=== PATIENT | female | born 1950 | race Two or more races ===

== ENCOUNTER 2019-10-31 10:43 | Inpatient (IN) | payer MEDICARE, BC, MEDICAID ==
[~2019-10-31] VITALS: Ht 160 cm; Wt 74.8 kg
[2019-10-31 10:50] VITALS: BP 136/70
--- NOTE | 2019-10-31 10:50 | NUR ---
ED Nurse Note: Pt brought by ambulance into ED w/ c/o L knee pain s/p fall out of bed 1 hour ago. L knee pain 7/10. Pt pedal pulses 3+, pt denies numbness/tingling. ROM 2/5 LLE. Pt is alert and ox4, ambulatory before fall. Pt set up on monitor due to hx of heart stent. XR being taken.
[2019-10-31] MEDS ORDERED: ZYRTEC10 MG ORAL (10:54)
[2019-10-31] MEDS ORDERED: SYNTHROID25 MCG ORAL (10:54)
[2019-10-31] MEDS ORDERED: Morphine Sulfate 4mg/ml Inj (IV USE ONLY) IM ONE (11:15)
--- NOTE | 2019-10-31 11:24 | Diagnostic Imaging Report ---
EXAM: XR Left Knee, 3 views CLINICAL HISTORY: PAIN TECHNIQUE: Three views of the left knee. COMPARISON: No relevant prior studies available. FINDINGS: Bones/joints: Comminuted mildly impacted distal femoral metaphyseal fracture. Moderate tricompartmental degenerative osteoarthrosis. Small knee joint effusion. Soft tissues: Soft tissue swelling overlying the knee. Vasculature: Vascular calcifications seen posteriorly. IMPRESSION: 1. Comminuted mildly impacted distal femoral metaphyseal fracture. 2. Moderate tricompartmental degenerative osteoarthrosis. 3. Soft tissue swelling overlying the knee. 4. Small knee joint effusion.
--- NOTE | 2019-10-31 11:28 | Emergency Room Report ---
History of Present Illness General Chief Complaint: Multiple Trauma/Fall Source: Patient Present Illness HPI 69-year-old female who reports falling out of bed this morning landing on her left knee. Patient reports severe pain with any movement to her left knee. Patient stated she woke up in good health this morning she stood up out of bed tripped, and fell onto her left knee. Patient denies any head injury, nausea, vomiting, dizziness. Patient is not on anti-anticoagulation. Allergies: Coded Allergies: No Known Allergies (Unverified , 10/31/19) Nursing Documentation-[facility] Past Medical History: No History, Except For Hx Cardiac Problems: No - kidney cancer, stent surgery in May 2019 Review of Systems Constitutional: Denies: chills, fever Respiratory: Denies: cough, shortness of breath Cardiovascular: Denies: chest pain, palpitations Gastrointestinal: Denies: diarrhea, vomiting Genitourinary: Denies: hematuria, pain Musculoskeletal: Reports: joint pain, joint swelling Skin: Denies: rash, lesions Neurological: Denies: headache, dizziness Physical Exam Vital Signs Date Time Temp Pulse Resp B/P (MAP) Pulse Ox O2 Delivery O2 Flow Rate FiO2 10/31/19 10:45 97.9 63 18 146/65 (92) 95 Room Air Sp02 EP Interpretation: reviewed General Appearance: well appearing, non-toxic, moderate distress - Can Sean to pain Head: normocephalic, atraumatic Eyes: bilateral eye normal inspection ENT: hearing grossly normal, EOM grossly intact, moist mucus membranes Neck: supple Respiratory: lungs clear, normal breath sounds, no respiratory distress, speaking full sentences Cardiovascular #1: regular rate, rhythm, normal capillary refill Cardiovascular #2: 2+ radial (R), 2+ radial (L) Gastrointestinal: soft, non-distended Rectal: deferred Musculoskeletal: no lower extremity edema, tender - Superior to left knee, swelling - Medial and lateral distal left femur, other - Range of motion limited due to severe pain in left knee. Obvious deformity noted anteriorly at distal femur Neurologic: alert, grossly normal Psychiatric: mood/affect normal Skin: warm/dry, normal turgor Medical Decision Making Diagnostic Impression: Primary Impression: Fracture, femur Additional Impression: Fall ER Course 69-year-old female status post fall presenting with knee pain. Patient found to have obvious deformity of superior aspect of knee, inferior aspect of femur. Differential includes was not limited to fracture, dislocation, hematoma, vascular injury We will perform x-rays and preop lab testing as patient has likely fracture. Laboratory Tests Test 10/31/19 11:12 White Blood Count 11.1 K/UL (4.8-10.8) H Red Blood Count 3.58 M/UL (4.20-5.40) L Hemoglobin 9.4 G/DL (12.0-16.0) L Hematocrit 30.4 % (37.0-47.0) L Mean Corpuscular Volume 85 FL (80-99) Mean Corpuscular Hemoglobin 26.3 PG (27.0-31.0) L Mean Corpuscular Hemoglobin Concent 30.9 G/DL (32.0-36.0) L Red Cell Distribution Width 15.7 % (11.6-14.8) H Platelet Count 217 K/UL (150-450) Mean Platelet Volume 8.3 FL (6.5-10.1) Neutrophils (%) (Auto) % (45.0-75.0) Lymphocytes (%) (Auto) % (20.0-45.0) Monocytes (%) (Auto) % (1.0-10.0) Eosinophils (%) (Auto) % (0.0-3.0) Basophils (%) (Auto) % (0.0-2.0) Differential Total Cells Counted 100 Neutrophils % (Manual) 92 % (45-75) H Lymphocytes % (Manual) 4 % (20-45) L Monocytes % (Manual) 4 % (1-10) Eosinophils % (Manual) 0 % (0-3) Basophils % (Manual) 0 % (0-2) Band Neutrophils 0 % (0-8) Platelet Estimate Adequate Platelet Morphology Normal Hypochromasia 1+ Anisocytosis 1+ Prothrombin Time 10.1 SEC (9.30-11.50) Prothrombin Time INR 0.9 (0.9-1.1) PTT 25 SEC (23-33) Sodium Level 142 MMOL/L (136-145) Potassium Level 4.6 MMOL/L (3.5-5.1) Chloride Level 111 MMOL/L (98-107) H Carbon Dioxide Level 20 MMOL/L (21-32) L Anion Gap 11 mmol/L (5-15) Blood Urea Nitrogen 35 mg/dL (7-18) H Creatinine 0.8 MG/DL (0.55-1.30) Estimate Glomerular Filtration Rate > 60 mL/min (>60) Glucose Level 137 MG/DL (74-106) H Calcium Level 8.5 MG/DL (8.5-10.1) Total Bilirubin 0.2 MG/DL (0.2-1.0) Aspartate Amino Transferase (AST) 20 U/L (15-37) Alanine Aminotransferase (ALT) 30 U/L (12-78) Alkaline Phosphatase 120 U/L (46-116) H Total Protein 7.4 G/DL (6.4-8.2) Albumin 3.4 G/DL (3.4-5.0) Globulin 4.0 g/dL Albumin/Globulin Ratio 0.9 (1.0-2.7) L EKG Diagnostic Results EKG Time: 11:18 EP Interpretation: Normal sinus rhythm rate of 69 Rate: normal Rhythm: NSR ST Segments: no acute changes Other X-Ray Diagnostic Results Other X-Ray Diagnostic Results : X-Ray ordered: xr knee Indication: Pain EP Interpretation: Yes Interpretation: other - Fracture of distal femur PA Scribe Text IMPRESSION: 1. Comminuted mildly impacted distal femoral metaphyseal fracture. 2. Moderate tricompartmental degenerative osteoarthrosis. 3. Soft tissue swelling overlying the knee. 4. Small knee joint effusion. Last Vital Signs Date Time Temp Pulse Resp B/P (MAP) Pulse Ox O2 Delivery O2 Flow Rate FiO2 10/31/19 10:45 97.9 63 18 146/65 (92) 95 Room Air Reevaluation Impression Patient found to have distal femur fracture. Patient's case discussed with Dr. Givens and Dr Herrera (orthopedics) who accepted pts admission to floor Disposition: ADMITTED INPATIENT Condition: Serious Referrals: NOT CHOSEN IPA/,REFERRING (PCP) Richard Saldana M.D. Oct 31, 2019 11:28
[2019-10-31 11:31] LABS: HEMATOCRIT 30.4 % (37.0-47.0); HEMOGLOBIN 9.4 G/DL (12.0-16.0); MEAN CORPUSCULAR VOLUME 85 FL (80-99); PLATELET COUNT 217 K/UL (150-450); RED BLOOD COUNT 3.58 M/UL (4.20-5.40); RED CELL DISTRIBUTION WIDTH 15.7 % (11.6-14.8); WHITE BLOOD COUNT 11.1 K/UL (4.8-10.8)
[2019-10-31 11:43] LABS: ANION GAP 11 mmol/L (5-15); BLOOD UREA NITROGEN 35 mg/dL (7-18); CALCIUM 8.5 MG/DL (8.5-10.1); CARBON DIOXIDE 20 MMOL/L (21-32); CHLORIDE 111 MMOL/L (98-107); CREATININE 0.8 MG/DL (0.55-1.30); POTASSIUM 4.6 MMOL/L (3.5-5.1); SODIUM 142 MMOL/L (136-145)
[2019-10-31 11:50] LABS: INR 0.9 (0.9-1.1)
[2019-10-31 11:52] LABS: ALANINE AMINOTRANSFERASE 30 U/L (12-78); ALBUMIN 3.4 G/DL (3.4-5.0); ALBUMIN/GLOBULIN RATIO 0.9 (1.0-2.7); ALKALINE PHOSPHATASE 120 U/L (46-116); ASPARTATE AMINO TRANSFERASE 20 U/L (15-37); BILIRUBIN,TOTAL 0.2 MG/DL (0.2-1.0)
[2019-10-31] MEDS ORDERED: HYDROmorphone 1mg/ml Carpuject IVP ONE ×2 (12:00→16:15)
--- NOTE | 2019-10-31 12:58 | Diagnostic Imaging Report ---
EXAM: XR Left Hip With Pelvis When Performed, 2 or 3 Views CLINICAL HISTORY: PAIN TECHNIQUE: Two or three views of the left hip, with pelvis when performed. COMPARISON: Left knee x-rays obtained earlier the same date FINDINGS: Bones/joints: Mild osseous hypertrophy and/or enthesophytes along the left femoral greater trochanter, likely chronic. Partial visualization of a comminuted distal femoral diaphyseal fracture. No visible fracture or dislocation in the left hip. Soft tissues: Unremarkable. IMPRESSION: 1. No acute findings in the left hip. 2. Partial visualization of a comminuted distal femoral diaphyseal fracture.
[2019-10-31 13:00] VITALS: BP 133/70
[2019-10-31 14:58] VITALS: BP 130/71
[2019-10-31 17:00] VITALS: BP 124/78
[2019-10-31] MEDS ORDERED: Hydromorphone 0.5mg/0.5ml inj IVP ONE (18:30)
[2019-10-31] MEDS ORDERED: Ketorolac 30mg Inj IV ONE (18:30)
[2019-10-31 19:07] VITALS: BP 137/78
--- NOTE | 2019-10-31 20:05 | NUR ---
TRANSFER TO FLOOR: Patient transferred to as ordered, per Dr Givens. Report given to GUICHO Castellon . Belongings and medications given to . Family and or S/O informed of transfer.
[2019-10-31 20:10] VITALS: BP 121/64
--- NOTE | 2019-10-31 20:10 | NUR ---
NURSE NOTES: Received pt from E.D> via [facility], pain level 7/10 to left femur, no distress noted. IV Rj LATHAM # 20 Addendum: 10/31/19 at 2348 by LAUREN MEDINA RN Received pt from E.D. via [facility], pain level 7/10 to left femur, no distress noted. IV R AC #18 patent and intact. Will admit pt to floor. Bed in lowest position and locked, side rails up x 2, call lig within reach. Will condinue to monitor.
--- NOTE | 2019-10-31 21:00 | NUR ---
NURSE NOTES: Pt takes Brilinta medication. Our pharmacy does not carry this medication. Instructed pt to have someone bring medication from [facility]. Pt verbalized understanding of instruction.
[2019-10-31] MEDS ORDERED: Hydromorphone 0.5mg/0.5ml inj IVP PRN (21:30)
[2019-10-31] MEDS ORDERED: Zolpidem 5mg tab ORAL PRN (21:30)
[2019-10-31] MEDS ORDERED: Heparin 1000 units/ml 1ml Vial INJ ONE (21:30)
[2019-10-31] MEDS ORDERED: HYDROcodone/Acetamin 5/325 tab ORAL PRN (21:30)
[2019-10-31] MEDS ORDERED: Heparin 5000 units/ml inj SUBQ SCH (21:36)
[2019-10-31] MEDS: Hydromorphone 0.5mg/0.5ml inj IVP PRN (22:25)
--- NOTE | 2019-10-31 23:02 | History & Physical ---
History and Physical History & Physicial History and Physical HPI Patient is a 69-year-old female with past medical history of Coronary Artery Disease, s/p Stent May 2019, Renal Cell Carcinoma s/p Chemotherapy, who reports falling out of bed this morning, subsequently noting severe pain with any movement to her left knee. Patient stated she woke up in good health this morning she stood up out of bed tripped, and fell onto her left knee. Patient denies any head injury, nausea, vomiting, dizziness. Patient is on Brilinta. Allergies: No Known Allergies Past Medical History: Coronary Artery Disease, s/p Stent May 2019, Renal Cell Carcinoma s/p Chemotherapy ROS: Negative aside from above Physical Exam Vital Signs Noted Date Time Temp Pulse Resp B/P (MAP) Pulse Ox O2 Delivery O2 Flow Rate FiO2 10/31/19 10:45 97.9 63 18 146/65 (92) 95 Room Air General Appearance: well appearing, non-toxic, comfortable Head: normocephalic, atraumatic Eyes: bilateral eye normal inspection ENT: hearing grossly normal, EOM grossly intact, moist mucus membranes Neck: supple Respiratory: lungs clear, normal breath sounds, no respiratory distress, speaking full sentences Cardiovascular: regular rate, rhythm, HS1, HS2, normal Gastrointestinal: soft, non-distended Rectal: deferred Musculoskeletal: well perfused, no lower extremity edema, tender - Superior to left knee, swelling - Medial and lateral distal left femur, other - Range of motion limited due to severe pain in left knee. Obvious deformity noted anteriorly at distal femur Neurologic: alert, grossly normal Skin: warm/dry, normal turgor Impression: Fracture, femur Fall Coronary Artery Disease, s/p Stent May 2019 Renal Cell Carcinoma s/p Chemotherapy Plan: Orthopedic Consultation Cardiology Consultation - will need preoperative clearance - Dr Snyder SAUSAGE STRINGER Medications PPX Monitor labs Pain medications Laboratory Tests Test 10/31/19 11:12 White Blood Count 11.1 K/UL (4.8-10.8) H Red Blood Count 3.58 M/UL (4.20-5.40) L Hemoglobin 9.4 G/DL (12.0-16.0) L Hematocrit 30.4 % (37.0-47.0) L Mean Corpuscular Volume 85 FL (80-99) Mean Corpuscular Hemoglobin 26.3 PG (27.0-31.0) L Mean Corpuscular Hemoglobin Concent 30.9 G/DL (32.0-36.0) L Red Cell Distribution Width 15.7 % (11.6-14.8) H Platelet Count 217 K/UL (150-450) Mean Platelet Volume 8.3 FL (6.5-10.1) Neutrophils (%) (Auto) % (45.0-75.0) Lymphocytes (%) (Auto) % (20.0-45.0) Monocytes (%) (Auto) % (1.0-10.0) Eosinophils (%) (Auto) % (0.0-3.0) Basophils (%) (Auto) % (0.0-2.0) Differential Total Cells Counted 100 Neutrophils % (Manual) 92 % (45-75) H Lymphocytes % (Manual) 4 % (20-45) L Monocytes % (Manual) 4 % (1-10) Eosinophils % (Manual) 0 % (0-3) Basophils % (Manual) 0 % (0-2) Band Neutrophils 0 % (0-8) Platelet Estimate Adequate Platelet Morphology Normal Hypochromasia 1+ Anisocytosis 1+ Prothrombin Time 10.1 SEC (9.30-11.50) Prothrombin Time INR 0.9 (0.9-1.1) PTT 25 SEC (23-33) Sodium Level 142 MMOL/L (136-145) Potassium Level 4.6 MMOL/L (3.5-5.1) Chloride Level 111 MMOL/L (98-107) H Carbon Dioxide Level 20 MMOL/L (21-32) L Anion Gap 11 mmol/L (5-15) Blood Urea Nitrogen 35 mg/dL (7-18) H Creatinine 0.8 MG/DL (0.55-1.30) Estimate Glomerular Filtration Rate > 60 mL/min (>60) Glucose Level 137 MG/DL (74-106) H Calcium Level 8.5 MG/DL (8.5-10.1) Total Bilirubin 0.2 MG/DL (0.2-1.0) Aspartate Amino Transferase (AST) 20 U/L (15-37) Alanine Aminotransferase (ALT) 30 U/L (12-78) Alkaline Phosphatase 120 U/L (46-116) H Total Protein 7.4 G/DL (6.4-8.2) Albumin 3.4 G/DL (3.4-5.0) Globulin 4.0 g/dL Albumin/Globulin Ratio 0.9 (1.0-2.7) L EKG Normal sinus rhythm rate of 69 Rate: normal ST Segments: no acute changes XRay Knee: IMPRESSION: 1. Comminuted mildly impacted distal femoral metaphyseal fracture. 2. Moderate tricompartmental degenerative osteoarthrosis. 3. Soft tissue swelling overlying the knee. 4. Small knee joint effusion. Mariano Taylor MD Oct 31, 2019 23:02
[2019-11-01] VITALS: BP 113/55
--- NOTE | 2019-11-01 00:20 | NUR ---
NURSE NOTES: Pt states she hasn't voided since this morning. Bladder scan done 631ml noted. Encouraged pt to void in the bedpan. Will continue ot monitor.
--- NOTE | 2019-11-01 00:50 | NUR ---
NURSE NOTES: Pt voided via bedpan 500ml of yellow color urine.
[2019-11-01] MEDS: Hydromorphone 0.5mg/0.5ml inj IVP PRN ×2 (01:33→05:16)
[2019-11-01 05:20] VITALS: BP 108/58
[2019-11-01] MEDS: Levothyroxine 25mcg tab ORAL SCH (05:54)
[2019-11-01 06:51] LABS: BASOPHILS % (AUTO) 0.5 % (0.0-2.0); HEMATOCRIT 26.8 % (37.0-47.0); HEMOGLOBIN 8.3 G/DL (12.0-16.0); LYMPHOCYTES % (AUTO) 20.7 % (20.0-45.0); MEAN CORPUSCULAR VOLUME 85 FL (80-99); MONOCYTES % (AUTO) 11.2 % (1.0-10.0); NEUTROPHILS % (AUTO) 66.7 % (45.0-75.0); PLATELET COUNT 174 K/UL (150-450); RED BLOOD COUNT 3.17 M/UL (4.20-5.40); RED CELL DISTRIBUTION WIDTH 15.6 % (11.6-14.8); WHITE BLOOD COUNT 7.7 K/UL (4.8-10.8)
[2019-11-01 07:04] LABS: ANION GAP 11 mmol/L (5-15); BLOOD UREA NITROGEN 39 mg/dL (7-18); CALCIUM 8.3 MG/DL (8.5-10.1); CARBON DIOXIDE 20 MMOL/L (21-32); CHLORIDE 111 MMOL/L (98-107); CREATININE 0.9 MG/DL (0.55-1.30); POTASSIUM 4.7 MMOL/L (3.5-5.1); SODIUM 141 MMOL/L (136-145)
--- NOTE | 2019-11-01 07:06 | NUR ---
NURSE NOTES: Called pharmacy and spoke with Tammie (pharmacist) if pharmacy carry Brilinta medication. Per Tammie, pharmacy doesn't carry this medication. Ask pt to have medication brought from home.
--- NOTE | 2019-11-01 07:30 | NUR ---
HAND-OFF: Report given to GUICHO Cisneros. Pt in stable condition.
--- NOTE | 2019-11-01 07:30 | NUR ---
NURSE NOTES: Notified Dr. Mcleod for wound care consult per Dr. Taylor's order.
--- NOTE | 2019-11-01 07:33 | NUR ---
NURSE NOTES: Received report from GUICHO Batista. Rounding done with outgoing nurse. Pt a/o x 4, in bed. Denies any pain at this time. Rt AC IV access is patent. NS is running @50ml/hr at this time. Rt heel pressure ulcer noted. Bed in lowest position, call light within reach. Will continue to monitor.
[2019-11-01 08:00] VITALS: BP 112/56
[2019-11-01] MEDS: HYDROcodone/Acetamin 5/325 tab ORAL PRN ×2 (08:27→20:39)
--- NOTE | 2019-11-01 08:30 | General Progress Note ---
Assessment/Plan Assessment/Plan: Impression: Fracture, femur Fall Coronary Artery Disease, s/p Stent May 2019 Renal Cell Carcinoma s/p Chemotherapy Plan: Orthopedic Consultation Cardiology Consultation - clearance for surgery Monitor labs Pain medications DVT prophylaxis impression, plan, and exam edited and reviewed in detail care discussed with RN Subjective Allergies: Coded Allergies: No Known Allergies (Unverified , 10/31/19) Subjective care reviewed has pain ortho contacted Objective Last 24 Hour Vital Signs Date Time Temp Pulse Resp B/P (MAP) Pulse Ox O2 Delivery O2 Flow Rate FiO2 11/01/19 05:20 97.8 80 18 108/58 (75) 97 11/01/19 00:00 98.4 69 18 113/55 (74) 98 10/31/19 20:34 Room Air 10/31/19 20:10 97.3 77 18 121/64 (83) 96 10/31/19 20:05 98.4 89 17 137/78 95 Room Air 99 10/31/19 19:07 89 17 137/78 95 Room Air 10/31/19 17:00 85 21 124/78 98 Room Air 10/31/19 14:58 98.4 72 20 130/71 100 Room Air 99 10/31/19 13:00 98.8 70 19 133/70 98 Room Air 10/31/19 10:50 70 19 Room Air 99 10/31/19 10:50 98.4 82 18 136/70 99 Room Air 10/31/19 10:45 97.9 63 18 146/65 (92) 95 Room Air Intake and Output 10/31/19 11/01/19 19:00 07:00 Intake Total 750 ml Output Total 600 ml Balance 150 ml Intake Oral 300 ml IV Total 450 ml Output Urine Total 600 ml Laboratory Tests 10/31/19 11:12: White Blood Count 11.1H, Red Blood Count 3.58L, Hemoglobin 9.4L, Hematocrit 30.4L, Mean Corpuscular Volume 85, Mean Corpuscular Hemoglobin 26.3L, Mean Corpuscular Hemoglobin Concent 30.9L, Red Cell Distribution Width 15.7H, Platelet Count 217, Mean Platelet Volume 8.3, Neutrophils (%) (Auto) , Lymphocytes (%) (Auto) , Monocytes (%) (Auto) , Eosinophils (%) (Auto) , Basophils (%) (Auto) , Differential Total Cells Counted 100, Neutrophils % ( Manual) 92H, Lymphocytes % (Manual) 4L, Monocytes % (Manual) 4, Eosinophils % ( Manual) 0, Basophils % (Manual) 0, Band Neutrophils 0, Platelet Estimate Adequate, Platelet Morphology Normal, Hypochromasia 1+, Anisocytosis 1+, Prothrombin Time 10.1, Prothromb Time International Ratio 0.9, Activated Partial Thromboplast Time 25, Sodium Level 142, Potassium Level 4.6, Chloride Level 111H, Carbon Dioxide Level 20L, Anion Gap 11, Blood Urea Nitrogen 35H, Creatinine 0.8, Estimat Glomerular Filtration Rate > 60, Glucose Level 137H, Calcium Level 8.5, Total Bilirubin 0.2, Aspartate Amino Transf (AST/SGOT) 20, Alanine Aminotransferase (ALT/SGPT) 30, Alkaline Phosphatase 120H, Total Protein 7.4, Albumin 3.4, Globulin 4.0, Albumin/Globulin Ratio 0.9L 11/01/19 05:35: White Blood Count 7.7, Red Blood Count 3.17L, Hemoglobin 8.3L, Hematocrit 26.8L , Mean Corpuscular Volume 85, Mean Corpuscular Hemoglobin 26.3L, Mean Corpuscular Hemoglobin Concent 31.0L, Red Cell Distribution Width 15.6H, Platelet Count 174, Mean Platelet Volume 8.5, Neutrophils (%) (Auto) 66.7, Lymphocytes (%) (Auto) 20.7, Monocytes (%) (Auto) 11.2H, Eosinophils (%) (Auto) 1.0, Basophils (%) (Auto) 0.5, Sodium Level 141, Potassium Level 4.7, Chloride Level 111H, Carbon Dioxide Level 20L, Anion Gap 11, Blood Urea Nitrogen 39H, Creatinine 0.9, Estimat Glomerular Filtration Rate > 60, Glucose Level 79, Calcium Level 8.3L, Pro-B-Type Natriuretic Peptide 326H, Thyroid Stimulating Hormone (TSH) 0.096L Height (Feet): 5 Height (Inches): 3.00 Weight (Pounds): 166 Objective WDWN NAD clear breath sounds bilaterally without rhonchi or wheeze [id number] without MRG NABS nontender no HSM no CCE nonfocal Superior to left knee, swelling - Medial and lateral distal left femur, Range of motion limited due to severe pain in left knee. Obvious deformity noted anteriorly at distal femur Mingo Givens MD Nov 01, 2019 08:30
--- NOTE | 2019-11-01 08:31 | Consultation ---
Consult Note Consult Note 69 yo female with mechanical fall from bed yesterday morning and significant left knee pain Left comminuted distal femur fx Rec ORIF tomorrow with plates/screws vs IM nailing. d/w pt risks/benefits. needs medical clearance full note dictated Rubi Del Cid Nov 01, 2019 08:31
[2019-11-01] MEDS ORDERED: HYDROmorphone 1mg/ml Carpuject IVP PRN (08:45)
[2019-11-01] MEDS: HYDROmorphone 1mg/ml Carpuject IVP PRN ×4 (11:12→23:16)
--- NOTE | 2019-11-01 11:56 | NUR ---
NURSE NOTES: Pt's family brought Brilinta 90mg BID from home. Asked Dr. Givens regarding this home meds. ordered star after surgery. Will put it in.
[2019-11-01 12:00] VITALS: BP 114/53
--- NOTE | 2019-11-01 12:36 | NUR ---
NURSE NOTES: Hgb 8.3 and informed Rubi TELLEZ. No new order.
--- NOTE | 2019-11-01 12:37 | NUR ---
NURSE NOTES: Hgb 8.[address] Givens. is aware and no new order.
--- NOTE | 2019-11-01 13:02 | Diagnostic Imaging Report ---
Indications: Reason For Exam: PAIN Technique: Two views of the left femur Comparison: None Findings: Only limited AP images obtained, due to patient inability to tolerate positioning. There is a comminuted fracture of the distal femur. This is slightly angulated and slightly impacted. Impression: Positive for comminuted distal femoral fracture
--- NOTE | 2019-11-01 14:21 | Anethesia Preoperative Eval ---
Anesthesia Pre-op PMH/ROS General Date of Evaluation: Nov 01, 2019 Time of Evaluation: 12:58 Anesthesiologist: Arin ASA Score: ASA 3 Mallampati Score Class I : Soft palate, uvula, fauces, pillars visible Class II: Soft palate, uvula, fauces visible Class III: Soft palate, base of uvula visible Class IV: Only hard plate visible Mallampati Classification: Class II Surgeon: Letitia Diagnosis: L Femur Fx Surgical Procedure: ORIF L Femur Anesthesia History: none Family History: no anesthesia problems Allergies: Coded Allergies: No Known Allergies (Unverified , 10/31/19) Medications: see eMAR Patient NPO?: Yes Past Medical History Cardiovascular: Reports: CAD - Stent Hematology/Immune: Reports: other - Renal Cancer Anesthesia Pre-op Phys. Exam Physician Exam Last Vital Signs Date Time Temp Pulse Resp B/P (MAP) Pulse Ox O2 Delivery O2 Flow Rate FiO2 11/01/19 12:00 97.8 79 18 114/53 (73) 94 11/01/19 09:00 Room Air 10/31/19 20:05 99 Constitutional: NAD Neurologic: CN 2-12 intact Cardiovascular: RRR Respiratory: CTA Gastrointestinal: S/NT/ND Airway Exam Mallampati Score: Class II MO: limited ROM: limited Teeth: missing, intact Anesthesia Pre-op A/P Labs Hematology Test 11/01/19 05:35 White Blood Count 7.7 K/UL (4.8-10.8) Red Blood Count 3.17 M/UL (4.20-5.40) L Hemoglobin 8.3 G/DL (12.0-16.0) L Hematocrit 26.8 % (37.0-47.0) L Mean Corpuscular Volume 85 FL (80-99) Mean Corpuscular Hemoglobin 26.3 PG (27.0-31.0) L Mean Corpuscular Hemoglobin Concent 31.0 G/DL (32.0-36.0) L Red Cell Distribution Width 15.6 % (11.6-14.8) H Platelet Count 174 K/UL (150-450) Mean Platelet Volume 8.5 FL (6.5-10.1) Neutrophils (%) (Auto) 66.7 % (45.0-75.0) Lymphocytes (%) (Auto) 20.7 % (20.0-45.0) Monocytes (%) (Auto) 11.2 % (1.0-10.0) H Eosinophils (%) (Auto) 1.0 % (0.0-3.0) Basophils (%) (Auto) 0.5 % (0.0-2.0) Chemistry Test 11/01/19 05:35 Sodium Level 141 MMOL/L (136-145) Potassium Level 4.7 MMOL/L (3.5-5.1) Chloride Level 111 MMOL/L (98-107) H Carbon Dioxide Level 20 MMOL/L (21-32) L Anion Gap 11 mmol/L (5-15) Blood Urea Nitrogen 39 mg/dL (7-18) H Creatinine 0.9 MG/DL (0.55-1.30) Estimat Glomerular Filtration Rate > 60 mL/min (>60) Glucose Level 79 MG/DL (74-106) Calcium Level 8.3 MG/DL (8.5-10.1) L Pro-B-Type Natriuretic Peptide 326 pg/mL (0-125) H Thyroid Stimulating Hormone (TSH) 0.096 uiU/mL (0.358-3.740) Risk Assessment & Plan Assessment: ASA 3 Plan: GA with Spinal Status Change Before Surgery: No Pre-Antibiotics Drug: Edenilson Villar MD Nov 01, 2019 14:21
--- NOTE | 2019-11-01 15:24 | Consultation ---
History of Present Illness General Date patient seen: Nov 01, 2019 Reason for Hospitalization: Multiple Trauma/Fall Present Illness HPI 69-year-old female who reports falling out of bed this morning landing on her left knee. Patient reports severe pain with any movement to her left knee. Patient stated she woke up in good health this morning she stood up out of bed tripped, and fell onto her left knee. Patient denies any head injury, nausea, vomiting, dizziness. Patient is not on anti-anticoagulation. surgery called to evaluate for trauma. patient seen, chart reviewed, patient examined. no n/v/ f/c. pain in left knee. limited rom. no loc. Allergies: Coded Allergies: No Known Allergies (Unverified , 10/31/19) Medication History Scheduled Cetirizine Hcl* (Zyrtec*), 10 MG ORAL DAILY, (Reported) Levothyroxine Sodium* (Synthroid*), Unknown Dose ORAL DAILY, (Reported) Patient History History Provided By: Patient, Medical Record Healthcare decision maker Resuscitation status Full Code Advanced Directive on File No Past Medical/Surgical History Past Medical/Surgical History: (1) Fracture, femur (2) Fall Review of Systems Review of Symptoms General ROS: no weight loss or fever Psychological ROS: no depression or mood changes, no memory loss Ophthalmic ROS: no visual changes or eye irritation ENT ROS: no nasal congestion, hearing loss, dizziness Allergy and Immunology ROS: no allergic symptoms or urticaria Hematological and Lymphatic ROS: no swollen glands, unusual bleeding or bruising Endocrine ROS: no polyuria, polydipsia, weight changes, temperature intolerance Respiratory ROS: no cough, shortness of breath, or wheezing Cardiovascular ROS: no chest pain or dyspnea on exertion Gastrointestinal ROS: denies abdominal pain, bright red blood in stool. Musculoskeletal ROS: no myalgias or arthralgias Neurological ROS: no TIA or stroke symptoms Dermatological ROS: no new or changing skin lesions, rashes or pruritis Physical Exam Physical Exam General appearance: alert, cooperative, no distress, appears stated age Head: Normocephalic, without obvious abnormality, atraumatic Eyes: conjunctivae/corneas clear. PERRL, EOM's intact. Fundi benign Throat: Lips, mucosa, and tongue normal. Teeth and gums normal Neck: supple, symmetrical, trachea midline, no adenopathy, thyroid: not enlarged, symmetric, no tenderness/mass/nodules, no carotid bruit and no JVD Lungs: clear to auscultation bilaterally Heart: regular rate and rhythm, S1, S2 normal, no murmur, click, rub or gallop Abdomen: soft, non-tender. Bowel sounds normal. No masses, no organomegaly Extremities: extremities left knee traumaticwith edema Pulses: 2+ and symmetric Skin: Skin color, texture, turgor normal. No rashes or lesions Neurologic: Grossly normal Last 24 Hour Vital Signs Date Time Temp Pulse Resp B/P (MAP) Pulse Ox O2 Delivery O2 Flow Rate FiO2 11/01/19 12:00 97.8 79 18 114/53 (73) 94 11/01/19 09:00 Room Air 11/01/19 08:00 98.3 73 18 112/56 (74) 94 11/01/19 05:20 97.8 80 18 108/58 (75) 97 11/01/19 00:00 98.4 69 18 113/55 (74) 98 10/31/19 20:34 Room Air 10/31/19 20:10 97.3 77 18 121/64 (83) 96 10/31/19 20:05 98.4 89 17 137/78 95 Room Air 99 10/31/19 19:07 89 17 137/78 95 Room Air 10/31/19 17:00 85 21 124/78 98 Room Air Intake and Output 10/31/19 11/01/19 19:00 07:00 Intake Total 750 ml Output Total 600 ml Balance 150 ml Intake Oral 300 ml IV Total 450 ml Output Urine Total 600 ml Laboratory Tests Test 11/01/19 05:35 White Blood Count 7.7 K/UL (4.8-10.8) Red Blood Count 3.17 M/UL (4.20-5.40) L Hemoglobin 8.3 G/DL (12.0-16.0) L Hematocrit 26.8 % (37.0-47.0) L Mean Corpuscular Volume 85 FL (80-99) Mean Corpuscular Hemoglobin 26.3 PG (27.0-31.0) L Mean Corpuscular Hemoglobin Concent 31.0 G/DL (32.0-36.0) L Red Cell Distribution Width 15.6 % (11.6-14.8) H Platelet Count 174 K/UL (150-450) Mean Platelet Volume 8.5 FL (6.5-10.1) Neutrophils (%) (Auto) 66.7 % (45.0-75.0) Lymphocytes (%) (Auto) 20.7 % (20.0-45.0) Monocytes (%) (Auto) 11.2 % (1.0-10.0) H Eosinophils (%) (Auto) 1.0 % (0.0-3.0) Basophils (%) (Auto) 0.5 % (0.0-2.0) Sodium Level 141 MMOL/L (136-145) Potassium Level 4.7 MMOL/L (3.5-5.1) Chloride Level 111 MMOL/L (98-107) H Carbon Dioxide Level 20 MMOL/L (21-32) L Anion Gap 11 mmol/L (5-15) Blood Urea Nitrogen 39 mg/dL (7-18) H Creatinine 0.9 MG/DL (0.55-1.30) Estimat Glomerular Filtration Rate > 60 mL/min (>60) Glucose Level 79 MG/DL (74-106) Calcium Level 8.3 MG/DL (8.5-10.1) L Pro-B-Type Natriuretic Peptide 326 pg/mL (0-125) H Thyroid Stimulating Hormone (TSH) 0.096 uiU/mL (0.358-3.740) Height (Feet): 5 Height (Inches): 3.00 Weight (Pounds): 166 Medications Current Medications Medications (Trade) Dose Ordered Sig/James Route PRN Reason Start Time Stop Time Status Last Admin Dose Admin Acetaminophen (Tylenol) 650 mg Q6H PRN ORAL Mild Pain/Temp > 100.5 10/31/19 21:30 11/30/19 21:29 Acetaminophen/ Hydrocodone Bitart ([place] 5/325) 1 tab Q6H PRN ORAL pain >7 10/31/19 21:45 11/07/19 21:29 11/01/19 08:27 Diphenhydramine HCl (Benadryl) 25 mg Q6H PRN ORAL Itching 10/31/19 21:30 11/30/19 21:29 Heparin Sodium (Porcine) (Heparin 5000 units/ml) 5,000 units EVERY 12 HOURS SUBQ 11/02/19 09:00 12/02/19 08:59 Hydromorphone HCl (Dilaudid) 1 mg Q4H PRN IVP Severe Pain (Pain Scale 7-10) 11/01/19 09:00 11/08/19 08:59 11/01/19 15:15 Levothyroxine Sodium (Synthroid) 25 mcg DAILY@0630 ORAL 11/01/19 06:30 12/01/19 06:29 11/01/19 05:54 Mirtazapine (Remeron) 15 mg BEDTIME ORAL 11/01/19 21:00 12/01/19 20:59 Ondansetron HCl (Zofran) 4 mg Q6H PRN IVP Nausea & Vomiting 10/31/19 21:30 11/30/19 21:29 Patient Own Medication (Patient's Own Med) 1 ea BID ORAL 11/03/19 09:00 12/03/19 08:59 Zolpidem Tartrate (Ambien) 5 mg HSPRN PRN ORAL Insomnia 10/31/19 21:30 11/07/19 21:29 Assessment/Plan Problem List: (1) Fracture, femur Assessment & Plan: Findings: Only limited AP images obtained, due to patient inability to tolerate positioning. There is a comminuted fracture of the distal femur. This is slightly angulated and slightly impacted. Impression: Positive for comminuted distal femoral fracture Ortho OR 11/02 ICD Codes: S72.90XA - Unspecified fracture of unspecified femur, initial encounter for closed fracture SNOMED: 11063914 (2) Fall Assessment & Plan: anticoagulate okay for diet npo p mn for OR with ortho tomorrow iv fluids abx pre op pt/ot will follow with recs thank you FINDINGS: Bones/joints: Mild osseous hypertrophy and/or enthesophytes along the left femoral greater trochanter, likely chronic. Partial visualization of a comminuted distal femoral diaphyseal fracture. No visible fracture or dislocation in the left hip. Soft tissues: Unremarkable. IMPRESSION: 1. No acute findings in the left hip. 2. Partial visualization of a comminuted distal femoral diaphyseal fracture. FINDINGS: Bones/joints: Comminuted mildly impacted distal femoral metaphyseal fracture. Moderate tricompartmental degenerative osteoarthrosis. Small knee joint effusion. Soft tissues: Soft tissue swelling overlying the knee. Vasculature: Vascular calcifications seen posteriorly. IMPRESSION: 1. Comminuted mildly impacted distal femoral metaphyseal fracture. 2. Moderate tricompartmental degenerative osteoarthrosis. 3. Soft tissue swelling overlying the knee. 4. Small knee joint effusion. ICD Codes: W19.XXXA - Unspecified fall, initial encounter SNOMED: [id number], [id number] Feliciano Mcleod Nov 01, 2019 15:24
[2019-11-01 16:00] VITALS: BP 121/53
--- NOTE | 2019-11-01 19:16 | NUR ---
HAND-OFF: Report given to GUICHO Pineda. Pt is stable.
[2019-11-01 20:00] VITALS: BP 130/71
[2019-11-02] VITALS (14 sets, daily range): BP systolic 111–164; BP diastolic 53–105
[2019-11-02] MEDS: Metoprolol Succinate XL 25mg tab ORAL SCH ×2 (02:00→08:24)
--- NOTE | 2019-11-02 03:30 | Progress Note ---
DATE: 11/01/2019 CARDIOLOGY PROGRESS NOTE SUBJECTIVE: The patient has left leg pain with movement. No shortness of breath. She denies chest pain. An echocardiogram was performed yesterday. Results are notable for a normal ejection fraction and normal wall motion with mild tricuspid regurgitation and minimally increased PA systolic pressures. OBJECTIVE: VITAL SIGNS: Blood pressure 114/53, pulse 79, respiratory rate 18, and afebrile. LUNGS: Clear. CARDIAC: Regular. Normal S1 and S2 with no murmur. ABDOMEN: Soft. EXTREMITIES: No edema. Left femur deformity due to fracture noted. DIAGNOSTIC DATA: EKG pending. IMPRESSION: 1. Mechanical fall with left femur fracture. 2. Ischemic heart disease with stable angina and prior stent. 3. Minimal pulmonary hypertension. PLAN: 1. Beta-lyle prophylaxis. 2. Proceed with surgery. 3. Perioperative cardiopulmonary risk is minimally increased. 4. DVT prophylaxis. 5. Postoperatively, we will follow. 6. Resumption of anti-platelet therapy in a stepwise fashion will depend on surgical course. Mariano Snyder M.D. DR: SONAM JOB#: [id number] CC:
--- NOTE | 2019-11-02 03:30 | Consultation ---
DATE OF CONSULTATION: 10/31/2019 CARDIOLOGY CONSULTATION CONSULTING PHYSICIAN: Mariano Snyder M.D. REQUESTING PHYSICIAN: Mingo Givens M.D. REASON: Preoperative cardiovascular evaluation for orthopedic surgery in the setting of coronary artery disease. HISTORY OF PRESENT ILLNESS: This pleasant 69-year-old female fell out of bed this morning while getting up and landed on her left knee, severe pain with difficulty movement ensued. She denies loss of consciousness, but states she tripped while mobilizing out of her bed. She takes dual anti-platelet drugs following coronary stent procedure in 05/2019, but did not note any bleeding. She was seen in the emergency room where a femur fracture was confirmed. Orthopedic surgery is planned and cardiovascular risk assessment is requested. The patient apparently was hospitalized in 05/2019 with sepsis due to a urinary infection. She had an active kidney problem at that time that precipitated this infection. The sepsis also has resulted in an acute myocardial infarction. She never had chest pain or pressure noted. Subsequent catheterization revealed a blocked artery. She does not recall which one and a coronary stent was placed. She has been on anticoagulation with aspirin and Brilinta since without complications. She has not been on any anti-lipid drugs. PAST MEDICAL HISTORY: History of renal cell carcinoma, coronary artery disease with coronary stent, hypothyroidism. ALLERGIES: None. MEDICATIONS: Reviewed and reconciled. SOCIAL HISTORY: Negative for smoking, alcohol, or substance abuse. FAMILY HISTORY: Noncontributory. REVIEW OF SYSTEMS: A 10-point review of systems performed. No fevers or chills. No history of asthma. No history of diabetes. She does not know her cholesterol level. No history of seizure or stroke. No change in bowel habits. She received chemotherapy for her kidney cancer, apparently is in remission. There is no history of abnormal blood clotting and there is no history of positive PPD, COPD, or asthma. PHYSICAL EXAMINATION: VITAL SIGNS: Blood pressure 146/65, pulse 63, respirations 18, and afebrile. HEENT: Conjunctivae are pink. Oropharynx clear. NECK: Supple. Jugular venous pressure normal. LUNGS: Clear. CARDIAC: Regular rhythm rate. Normal S1, S2 with a fourth heart sound. No murmur. ABDOMEN: Soft, nontender. EXTREMITIES: No clubbing or cyanosis. No edema. There is tenderness over the left knee. There is decreased range of motion and severe pain with any movement and there is some femur deformity noted with no skin breakdown. LABORATORY DATA: White count 11, hemoglobin 9.4. Potassium 4.6, BUN 35, creatinine 0.8, and albumin 2.4. EKG is pending. IMPRESSION: 1. Mechanical fall. 2. Left femur fracture. 3. Coronary artery disease with history of coronary stent. 4. Stable class 1 angina. 5. History of renal cell carcinoma in remission. PLAN: 1. Hold aspirin. 2. Hold anticoagulation for now. 3. Continue beta-lyle prophylaxis. 4. Check full thyroid panel. Mariano Snyder M.D. DR: ALTON JOB#: [id number] CC:
[2019-11-02] MEDS: HYDROmorphone 1mg/ml Carpuject IVP PRN ×3 (03:40→12:48)
--- NOTE | 2019-11-02 04:00 | Consultation ---
DATE OF CONSULTATION: 11/01/2019 ORTHOPEDIC CONSULTATION CONSULTING PHYSICIAN: Matteo Dong M.D. HISTORY OF PRESENT ILLNESS: The patient is a very pleasant 69-year-old female with a history of coronary artery disease and renal cell carcinoma, status post chemotherapy recently. She was getting out of bed yesterday morning and tripped and fell landing on her left knee. She had immediate onset of pain and inability to move the knee. She was transported to the [facility] ER yesterday where she was noted to have a badly comminuted distal femur fracture. Orthopedic consult has been called for evaluation and surgical intervention. PAST MEDICAL HISTORY: Coronary artery disease and renal cell carcinoma. PAST SURGICAL HISTORY: Stent placement in May 2019. CURRENT MEDICATIONS: Please see chart. ALLERGIES: None. SOCIAL HISTORY: She lives at home. She is independent with all activities at baseline. PHYSICAL EXAMINATION: GENERAL: She is a very pleasant and oriented. She is cooperative with examination. EXTREMITIES: She has 2+ swelling to the left knee with bruising. She has no wounds or lacerations. She is neurovascularly intact. She has significant tenderness to palpation when left lower extremity is elevated. IMAGING: X-rays of the femur, knee, and pelvis are reviewed. There is no evidence of hip fracture. There is a badly comminuted distal femur fracture. IMPRESSION: Left comminuted distal femur fracture. DISCUSSION: At this time, I discussed with the patient my findings and recommendations for open reduction and internal fixation of left femur with plates and screws versus an IM nail. She understands what is involved with surgery and she would like to get that done. Both risks of surgery and non-surgery were discussed with her. She understands the risks involved with the procedure including nerve injury, vessel injury, risk of infection, bleeding, risk of malunion and nonunion, hardware failure, additional fractures, and the need for surgery down the line, were all discussed with her. She understands the possibility of continued limitations following surgery. The patient has significant comorbid conditions and she understands all the risks including morbidity and mortality associated with it and anerethisia surgical risk. We will have Dr. Givens see her and provide preoperative medical clearance. A 2D echo has been ordered and we will plan to get this done tomorrow. All questions were answered. Matteo Dong M.D. Mikel Ford DR: WILIAN JOB#: [id number] CC: DARRON
[2019-11-02] MEDS: Levothyroxine 25mcg tab ORAL SCH (06:05)
--- NOTE | 2019-11-02 07:30 | NUR ---
NURSE NOTES: AWAKE/ALERT.PAIN SCALE 9/10. MEDICATE FOR PAIN ORDERED. NPO MAINTAINED FOR SURGERY. IN NO DISTRESS.
--- NOTE | 2019-11-02 07:57 | NUR ---
HAND-OFF: Report given to GUICHO Estrada
[2019-11-02] MEDS: Heparin 5000 units/ml inj SUBQ SCH ×2 (08:21→20:32)
--- NOTE | 2019-11-02 08:48 | General Progress Note ---
Assessment/Plan Assessment/Plan: Impression: Fracture, femur Fall Coronary Artery Disease, s/p Stent May 2019 Renal Cell Carcinoma s/p Chemotherapy Plan: Orthopedic intervention today Cardiology follow up Monitor labs Pain medications DVT prophylaxis post op care and rehab impression, plan, and exam edited and reviewed in detail care discussed with RN Subjective Allergies: Coded Allergies: No Known Allergies (Unverified , 10/31/19) Subjective care reviewed has pain surgery today Objective Last 24 Hour Vital Signs Date Time Temp Pulse Resp B/P (MAP) Pulse Ox O2 Delivery O2 Flow Rate FiO2 11/02/19 08:24 74 146/46 11/02/19 08:00 98.3 74 20 146/66 (92) 94 11/02/19 04:00 97.9 76 20 127/54 (78) 96 11/02/19 00:00 98.7 79 20 111/57 (75) 96 11/01/19 21:00 Room Air 11/01/19 20:00 97.0 84 18 130/71 (90) 98 11/01/19 16:00 98.4 80 18 121/53 (75) 94 11/01/19 12:00 97.8 79 18 114/53 (73) 94 11/01/19 09:00 Room Air Intake and Output 11/01/19 11/02/19 19:00 07:00 Intake Total 770 ml 160 ml Output Total 1200 ml Balance 770 ml -1040 ml Intake Oral 720 ml 160 ml IV Total 50 ml Output Urine Total 1200 ml # Voids 3 3 Height (Feet): 5 Height (Inches): 3.00 Weight (Pounds): 166 Objective WDWN NAD clear breath sounds bilaterally without rhonchi or wheeze [id number] without MRG NABS nontender no HSM no CCE nonfocal Superior to left knee, swelling - Medial and lateral distal left femur, Range of motion limited due to severe pain in left knee. Obvious deformity noted anteriorly at distal femur Mingo Givens MD Nov 02, 2019 08:48
--- NOTE | 2019-11-02 10:50 | NUR ---
NURSE NOTES: RT HEEL SORES CLEANSED WITH NS. APPLIED OPTIFOAM. ELEVATED ON PILLOW.
[2019-11-02] MEDS ORDERED: Duramorph PF 5mg/10ml amp ONE (12:09)
[2019-11-02] MEDS ORDERED: Bupivacaine 0.5% Inj 30 ml vial INJ ONE (12:09)
[2019-11-02] MEDS ORDERED: NeoSporin Gu Irrig 1ml Amp IRRIG ONE (12:10)
[2019-11-02] MEDS ORDERED: Bacitracin 50000 Units Vial ONE (12:10)
[2019-11-02] MEDS ORDERED: Ropivacaine 5mg/ml Vial 30ml INJ ONE (12:30)
--- NOTE | 2019-11-02 12:31 | Surgery Progress Note ---
Surgery Progress Note Subjective Additional Comments no acute events pending surgery today with ortho comfortable no complaints Objective Last 24 Hour Vital Signs Date Time Temp Pulse Resp B/P (MAP) Pulse Ox O2 Delivery O2 Flow Rate FiO2 11/02/19 09:16 Room Air 11/02/19 08:58 97.9 11/02/19 08:24 74 146/46 11/02/19 08:00 98.3 74 20 146/66 (92) 94 11/02/19 04:00 97.9 76 20 127/54 (78) 96 11/02/19 00:00 98.7 79 20 111/57 (75) 96 11/01/19 21:00 Room Air 11/01/19 20:00 97.0 84 18 130/71 (90) 98 11/01/19 16:00 98.4 80 18 121/53 (75) 94 I&O Intake and Output 11/01/19 11/02/19 18:59 06:59 Intake Total 770 ml 160 ml Output Total 1200 ml Balance 770 ml -1040 ml Intake Oral 720 ml 160 ml IV Total 50 ml Output Urine Total 1200 ml # Voids 3 3 Dressing: dry Wound: clean Cardiovascular: RSR Abdomen: soft, non-tender, present bowel sounds Extremities: pulses, other Plan Problems: (1) Fracture, femur Assessment & Plan: Findings: Only limited AP images obtained, due to patient inability to tolerate positioning. There is a comminuted fracture of the distal femur. This is slightly angulated and slightly impacted. Impression: Positive for comminuted distal femoral fracture Ortho OR 11/02 (2) Fall Assessment & Plan: anticoagulate okay for diet OR ortho today iv fluids abx pre op pt/ot will follow with recs thank you FINDINGS: Bones/joints: Mild osseous hypertrophy and/or enthesophytes along the left femoral greater trochanter, likely chronic. Partial visualization of a comminuted distal femoral diaphyseal fracture. No visible fracture or dislocation in the left hip. Soft tissues: Unremarkable. IMPRESSION: 1. No acute findings in the left hip. 2. Partial visualization of a comminuted distal femoral diaphyseal fracture. FINDINGS: Bones/joints: Comminuted mildly impacted distal femoral metaphyseal fracture. Moderate tricompartmental degenerative osteoarthrosis. Small knee joint effusion. Soft tissues: Soft tissue swelling overlying the knee. Vasculature: Vascular calcifications seen posteriorly. IMPRESSION: 1. Comminuted mildly impacted distal femoral metaphyseal fracture. 2. Moderate tricompartmental degenerative osteoarthrosis. 3. Soft tissue swelling overlying the knee. 4. Small knee joint effusion. Feliciano Mcleod Nov 02, 2019 12:31
--- NOTE | 2019-11-02 12:45 | NUR ---
NURSE NOTES: [facility] NURSE SEEN PT. DID WOUND DRESSING ON RTHEEL. TRIAD CREAM TO SACRAL AREA COVERED WITH OPTIFOAM. APPLIED OPTIFOAM DRESSING TO RT HIP.
--- NOTE | 2019-11-02 12:52 | NUR ---
NURSE NOTES: NPO MAINTAINED FOR SURGERY. TO OR VIA BED.
[2019-11-02] MEDS ORDERED: fentaNYL 100 mcg/2 mL IV ONE (13:16)
[2019-11-02] MEDS ORDERED: Propofol 200mg/20ml IV ONE (13:16)
[2019-11-02] MEDS ORDERED: Tranexamic Acid 1,000 MG in NS 65 ML IV ONE (13:30)
[2019-11-02] MEDS ORDERED: Tranexamic Acid 100 ML IVPB ONE (13:30)
--- NOTE | 2019-11-02 13:55 | Pre-Procedure Note/Attestation ---
Pre-Procedure Note/Attestation Complete Prior to Procedure Planned Procedure: left Procedure Narrative: left distal femur ORIF Indications for Procedure Pre-Operative Diagnosis: Left distal femur fracture Attestation I attest that I discussed the nature of the procedure; its benefits; risks and complications; and alternatives (and the risks and benefits of such alternatives ), prior to the procedure, with the patient (or the patient's legal wholesale representative). I attest that, if there was a reasonable possibility of needing a blood transfusion, the patient (or the patient's legal wholesale representative) was given the [facility] standardized written summary, pursuant to the Mark Edward Blood Safety Act ([place] Health and Safety Code # 1645, as amended). I attest that I re-evaluated the patient just prior to the surgery and that there has been no change in the patient's H&P, except as documented below: NONE Matteo Dong MD Nov 02, 2019 13:55
[2019-11-02] MEDS ORDERED: HYDROcodone/Acetamin 7.5/325 tab ORAL PRN (14:00)
[2019-11-02] MEDS ORDERED: Milk of Magnesia 30ml Ud ORAL PRN (14:00)
[2019-11-02] MEDS ORDERED: HYDROmorphone 1mg/ml Carpuject SUBQ PRN (14:00)
[2019-11-02] MEDS ORDERED: NS Irrig 1000ml IRRIG ONE (14:08)
--- NOTE | 2019-11-02 14:10 | NUR ---
NURSE NOTES:WOUND CARE NOTES:Pt presented on admission with resolving full thickness pressure injury R heel. [place] granulation at base of wound with surrounding pink epithelial. Edges adherent to base of wound.(L)1cm x (W)1.5cm. Small amt non-odorous serous exudate noted. Hyperpigmentation periwound. Pt stated she has had wound for over one year and wound was significantly bigger. L heel is boggy with non-blanching erythema. Non-tender when palpated. Sacrum is pink with dry skin. Scattered areas of hyperpigmentation from previous pressure injuries. Pt pending surgery today. Skin precautions observed and implemented. Triad Moisture Barrier paste applied to Sacrum and covered with Optifoam drsg. Cav[place] Skin Barrier applied to R hip/R trochanteric and covered with Optifoam drsg. [place] Skin Barrier applied to L heel and covered with Optifoam drsg. R heel wound cleansed with Saline. Therahoney applied . Cavilon Skin Barrier applied periwound. Covered with Optifoam drsg. Positioned with pillow on R side . Both heels floated off mattress with pillow. Tx.Plan: Cleanse R heel wound with saline. apply Therahoney. Apply Cavilon Skin Barrier periwound. Cover with Optifoam drsg. Change every 3 days and prn. Apply Moisture Barrier Paste to Sacrum. Cover with Optifoam drsg. Change every 3 days and prn. Apply Cavilon Skin Barrier to R Hip/R trochanter. Cover with Optifoam drsg. Change every 7 days and prn. Apply [place] Skin Barrier to L heel. Cover with Optifoam drsg. Change every 7 days and prn. APM/AGUILA Mattress overlay. Reposition at least every 2hours or as tolerated. Off-load heels with pillow.
[2019-11-02] MEDS ORDERED: Sterile Water Irrig 1000ml IRRIG ONE (16:00)
--- NOTE | 2019-11-02 16:00 | Brief Operative Note ---
Immediate Post Operative Note Operative Note Pre-op Diagnosis: Left distal femur fracture Procedure: Left distal femur ORIF with hal retrograde nail Post-op Diagnosis: same as pre-op Surgeon: nadia System Development Engineer: Maria Eugenia Anesthesiologist: Raj Anesthesia: regional Specimen: none Complications: none Condition: stable Fluids: crystaloids Estimated Blood Loss: volume - 150cc Implant(s) used?: Yes - hal nail [id number] Matteo Dong MD Nov 02, 2019 16:00
--- NOTE | 2019-11-02 16:26 | Immediate Post-Op Evaluation ---
Immediate Post-Op Evalulation Immediate Post-Op Evalulation Procedure: ORIF of L distal femoral Fx Date of Evaluation: Nov 02, 2019 Time of Evaluation: 16:25 IV Fluids: 1200 Blood Products: 1unit of PRBC Estimated Blood Loss: 150 Urinary Output: 500 Blood Pressure Systolic: 145 Blood Pressure Diastolic: 61 Pulse Rate: 86 Respiratory Rate: 20 O2 Sat by Pulse Oximetry: 99 Temperature (Fahrenheit): 97.6 Pain Score (1-10): 1 Nausea: No Vomiting: No Patient Status: awake, patent, none Hydration Status: adequate Laith Walton MD Nov 02, 2019 16:26
--- NOTE | 2019-11-02 17:30 | NUR ---
NURSE NOTES: REC'D FROM PACU SP INTRAMEDULLARY NAILING LEFT FEMUR. AWAKEALERT. V/S TAKEN. LEFT FEMUR DRESSING DRY AND INTACT. WITH IMMOBILIZER ON. ICE PACK ON. WITH GOOD PEDAL PULSE. NO C./O PAIN. IN NO DISTRESS.
[2019-11-02] MEDS: Docusate 100mg cap ORAL SCH (17:52)
[2019-11-02] MEDS: D5 1/2NS w/KCl 20mEq 1,000 ML IV SCH (17:53)
--- NOTE | 2019-11-02 19:00 | NUR ---
NURSE NOTES: AWAKE. IN NO APPARENT DISTRESS.
--- NOTE | 2019-11-02 19:21 | NUR ---
HAND-OFF: Report given to Demi YANES RN.
--- NOTE | 2019-11-02 19:30 | NUR ---
NURSE NOTES: Received report & pt from GUICHO Clancy. Pt lying in bed, a&ox4, on O2 via NC @ 2LPM. No s/s of acute distress & no c/o pain. Surgical drsg C/D/I with immobilizer & icepack on. IV site intact with IVF running as ordered. Bed in lowest position, call light within reach. Will continue to monitor. Addendum: 11/03/19 at 0315 by Breanne Alvarez RN Garces catheter intact & draining yellow urine output to gravity.
--- NOTE | 2019-11-02 21:00 | NUR ---
NURSE NOTES: AP/AGUILA mattress delivered
[2019-11-02] MEDS: ceFAZolin sod 1 GM in D5W 55 ML IV SCH (23:34)
[2019-11-03] VITALS (10 sets, daily range): BP systolic 83–183; BP diastolic 47–82
--- NOTE | 2019-11-03 01:45 | Operative Note - Dictated ---
DATE OF OPERATION: 11/02/2019 PREOPERATIVE DIAGNOSIS: Left femur supracondylar fracture with severe comminution, extra-articular. POSTOPERATIVE DIAGNOSIS: Left femur supracondylar fracture with severe comminution, extra-articular. PROCEDURE: Left distal femur open reduction and internal fixation with a retrograde intramedullary nail, size 12 mm x 32 cm nail with 3 distal fixations and 1 proximal fixation. SURGEON: Matteo Dong M.D. GOLF STUD RIVETER: Rubi Del Cid PA-C. ANESTHESIOLOGIST: Laith Walton M.D. ANESTHESIA: Spinal anesthesia. ESTIMATED BLOOD LOSS: 150 mL. COMPLICATIONS: None. BRIEF HISTORY: The patient is a pleasant 69-year-old female who sustained a fall and sustained a comminuted supracondylar fracture of the femur. After full discussion of risks and benefits of the surgery including infection, bleeding, neurovascular complication, possibility of malunion, possibility of nonunion, possibility of need for further surgery, possibility of need for other treatment, and inability to walk down the line as well as significant perioperative morbidity and mortality, the patient and the family consented to proceed with surgery. OPERATIVE PROCEDURE: The patient was brought to the operating room table and was placed supine. All pressure points were well padded. Spinal anesthesia was induced. The left leg was prepped and draped in usual sterile fashion. The time-out was performed. Preoperative antibiotics were given. An anterior incision was made infrapatellar and a transpatellar tendon approach was undertaken. Patellar tendon was retracted. The intercondylar notch was identified and a guidepin was placed through the intercondylar notch just at the level of the PCL in the central portion of the notch and was advanced approximately 5 cm. The position was checked on AP and lateral, and appeared to be in good position. Opening reamer was used and 12 mm opening reamer was used. Subsequently, a ball-headed guidewire was then passed through the distal fragment and across the fracture site into the proximal fragment. Position was checked on AP and lateral, and appeared to be perfect. Sequential reaming was performed from 10 mm to 13.5 mm. Once this was completed, measurements were made and 32 cm nail appeared to be the right size. Therefore, a 12 mm x 32 cm nail was then placed in. The fracture was reduced on AP and lateral. There was significant comminution and some impaction was accepted. Once this was completed and the nail was assured to be well seated both on AP and on lateral, 3 distal screws were placed in, two from lateral to medial, one obliquely from medial to lateral using the guide. Position of screws were checked and appeared to be in excellent position. At this point, a proximal screw was placed using image intensifier. The proximal screw was 35 mm. The distal screws were two 80 mm and one 75 mm screws. A single 90 mm screw was in-and-out and was taken off the field. Wounds were thoroughly irrigated using copious amount of fluid. Final x-rays were obtained, which showed the fracture was reduced in good position on AP and lateral. Wounds were thoroughly irrigated. The patellar tendon was closed using #1 Vicryl suture. Subcutaneous tissue was closed 2-0 Vicryl suture. The skin was closed using 3-0 Monocryl suture. Steri-Strips were applied. The patient was taken to recovery room in stable condition. All lap counts and instrument counts were correct. Matteo Dong M.D. DR: Allyson JOB#: [id number] CC:
[2019-11-03] MEDS: Levothyroxine 25mcg tab ORAL SCH (05:39)
[2019-11-03] MEDS: D5 1/2NS w/KCl 20mEq 1,000 ML IV SCH ×3 (06:49→20:44)
--- NOTE | 2019-11-03 07:04 | NUR ---
HAND-OFF: Report given to GUICHO Clancy. Pt in stable condition.
[2019-11-03] MEDS: HYDROcodone/Acetamin 5/325 tab ORAL PRN ×2 (07:53→18:25)
[2019-11-03] MEDS: ceFAZolin sod 1 GM in D5W 55 ML IV SCH (08:00)
--- NOTE | 2019-11-03 08:00 | Progress Note ---
DATE: 11/02/2019 CARDIOLOGY PROGRESS NOTE SUBJECTIVE: The patient is postop day #0 status post ORIF of left femur fracture. Pain control is adequate. No shortness of breath. OBJECTIVE: VITAL SIGNS: Blood pressure earlier 142/105, now 127/56; heart rate 79; respiratory rate 20. Afebrile. LUNGS: Diminished breath sounds. No wheezing or rales. CARDIAC: Regular rhythm and rate. Normal S1, S2 with a fourth heart sound. ABDOMEN: Soft. EXTREMITIES: No edema. Surgical site is dry with dressing in place. IMPRESSION: 1. Femur fracture, status post open reduction and internal fixation. 2. Coronary artery disease with stable angina. 3. History of coronary stent. 4. Mild pulmonary hypertension. PLAN: 1. Postop care including DVT prophylaxis and pain control. 2. Resume anti-platelet therapy with aspirin, hold Brilinta. 3. Titrate antihypertensives. 4. Adjust IV fluids and monitor hemoglobin. 5. Ongoing beta-lyle therapy. Mariano Snyder M.D. DR: BLAYNE JOB#: [id number] CC:
--- NOTE | 2019-11-03 08:09 | Orthopedic Progress Note ---
Orthopedic - Progress Note Subjective Symptoms: c/o post-op knee pain, improved Objective Last 24 Hour Vital Signs Date Time Temp Pulse Resp B/P (MAP) Pulse Ox O2 Delivery O2 Flow Rate FiO2 11/03/19 04:00 98.7 84 19 126/78 (94) 97 11/03/19 00:00 98.5 79 19 112/52 (72) 98 11/02/19 21:03 98.3 11/02/19 21:00 Room Air 11/02/19 20:00 98.4 79 20 127/56 (79) 98 11/02/19 18:00 98.3 87 20 151/90 (110) 97 11/02/19 17:30 97.1 93 20 142/105 (117) 97 11/02/19 17:15 98.2 87 20 135/61 100 Nasal Cannula 3 11/02/19 17:05 84 19 121/57 100 Nasal Cannula 3 11/02/19 16:50 89 15 137/62 100 Nasal Cannula 3 11/02/19 16:40 85 18 131/56 100 Nasal Cannula 3 11/02/19 16:30 81 15 142/60 100 Simple Mask 3 11/02/19 16:26 86 20 99 11/02/19 16:25 88 14 146/53 100 Simple Mask 3 11/02/19 16:19 97.6 84 13 146/60 100 Simple Mask 3 11/02/19 12:00 98.3 77 21 164/88 (113) 99 11/02/19 09:16 Room Air 11/02/19 08:58 97.9 11/02/19 08:24 74 146/46 Intake and Output 11/02/19 11/03/19 19:00 07:00 Intake Total 1625 ml 1185 ml Output Total 1050 ml 600 ml Balance 575 ml 585 ml Intake Oral 150 ml 360 ml IV Total 1475 ml 825 ml Output Urine Total 900 ml 600 ml Estimated Blood Loss 150 ml # Voids 1 Wound: clean, dry, intact Drains: none Neuro Status: normal Vascular Status: normal Additional Comments xray reviewed: excellent fracture stabilization with retro nail distal and proximal screws Assessment Post-op Diagnosis POD 1 Procedure Performed left femur ORIF Plan Plan: PT - partial WB. continue knee immobilizer , pain management, discharge plan - f/u with ortho as outpt for serial xrays and advancement in mobility and WB status , other - follow labs. today's pending. received 1 unit yesterday Rubi Del Cid Nov 03, 2019 08:09
[2019-11-03] MEDS: Docusate 100mg cap ORAL SCH ×3 (08:46→17:35)
[2019-11-03] MEDS: Metoprolol Succinate XL 25mg tab ORAL SCH (08:47)
[2019-11-03] MEDS: BRILINTA 90 MG ORAL SCH ×2 (08:47→17:35)
[2019-11-03 09:08] LABS: BASOPHILS % (AUTO) 0.6 % (0.0-2.0); EOSINOPHILS % (AUTO) 1.3 % (0.0-3.0); HEMATOCRIT 25.5 % (37.0-47.0); HEMOGLOBIN 8.2 G/DL (12.0-16.0); LYMPHOCYTES % (AUTO) 10.1 % (20.0-45.0); MEAN CORPUSCULAR VOLUME 86 FL (80-99); MONOCYTES % (AUTO) 11.2 % (1.0-10.0); NEUTROPHILS % (AUTO) 76.8 % (45.0-75.0); PLATELET COUNT 129 K/UL (150-450); RED BLOOD COUNT 2.96 M/UL (4.20-5.40); RED CELL DISTRIBUTION WIDTH 15.3 % (11.6-14.8)
[2019-11-03] MEDS: Heparin 5000 units/ml inj SUBQ SCH ×2 (09:47→20:48)
--- NOTE | 2019-11-03 12:30 | Pulmonology Progress Note ---
Assessment/Plan Assessment/Plan Pulmonary Progress Note Assessment/Plan: Impression: Fracture, femur POD#1 Post operative anemia s/p Fall Coronary Artery Disease, s/p Stent May 2019, ASA restarted, await Cardiology decision on Brilinta Renal Cell Carcinoma s/p Chemotherapy Plan: Orthopedic FU as OP Cardiology follow up Monitor labs Pain medications DVT prophylaxis post op care and rehab impression, plan, and exam edited and reviewed in detail care discussed with RN Subjective Allergies: Coded Allergies: No Known Allergies (Unverified , 10/31/19) Subjective care reviewed has pain surgery today Objective Vital Signs Noted Height (Feet): 5 Height (Inches): 3.00 Weight (Pounds): 166 Objective WDWN NAD clear breath sounds bilaterally without rhonchi or wheeze [id number] without MRG NABS nontender no HSM no CCE nonfocal Post operative wound dressing LLE. well perfused Subjective ROS Limited/Unobtainable: No Allergies: Coded Allergies: No Known Allergies (Unverified , 10/31/19) Objective Last 24 Hour Vital Signs Date Time Temp Pulse Resp B/P (MAP) Pulse Ox O2 Delivery O2 Flow Rate FiO2 11/03/19 12:00 98.4 82 18 131/68 (89) 97 11/03/19 10:00 98.5 11/03/19 09:00 Room Air 11/03/19 08:47 83 153/82 11/03/19 08:23 98.5 11/03/19 08:00 98.6 83 18 183/82 (115) 98 11/03/19 04:00 98.7 84 19 126/78 (94) 97 11/03/19 00:00 98.5 79 19 112/52 (72) 98 11/02/19 21:00 Room Air 11/02/19 20:00 98.4 79 20 127/56 (79) 98 11/02/19 18:00 98.3 87 20 151/90 (110) 97 11/02/19 17:30 97.1 93 20 142/105 (117) 97 11/02/19 17:15 98.2 87 20 135/61 100 Nasal Cannula 3 11/02/19 17:05 84 19 121/57 100 Nasal Cannula 3 11/02/19 16:50 89 15 137/62 100 Nasal Cannula 3 1/14/20 16:40 85 18 131/56 100 Nasal Cannula 3 11/02/19 16:30 81 15 142/60 100 Simple Mask 3 11/02/19 16:26 86 20 99 11/02/19 16:25 88 14 146/53 100 Simple Mask 3 11/02/19 16:19 97.6 84 13 146/60 100 Simple Mask 3 Intake and Output 11/02/19 11/03/19 19:00 07:00 Intake Total 1625 ml 1185 ml Output Total 1050 ml 600 ml Balance 575 ml 585 ml Intake Oral 150 ml 360 ml IV Total 1475 ml 825 ml Output Urine Total 900 ml 600 ml Estimated Blood Loss 150 ml # Voids 1 Laboratory Tests 11/03/19 08:30: White Blood Count 8.0, Red Blood Count 2.96L, Hemoglobin 8.2L, Hematocrit 25.5L , Mean Corpuscular Volume 86, Mean Corpuscular Hemoglobin 27.9, Mean Corpuscular Hemoglobin Concent 32.4, Red Cell Distribution Width 15.3H, Platelet Count 129L, Mean Platelet Volume 8.4, Neutrophils (%) (Auto) 76.8H, Lymphocytes (%) (Auto) 10.1L, Monocytes (%) (Auto) 11.2H, Eosinophils (%) (Auto ) 1.3, Basophils (%) (Auto) 0.6 Current Medications Medications (Trade) Dose Ordered Sig/James Route PRN Reason Start Time Stop Time Status Last Admin Dose Admin Acetaminophen (Tylenol) 650 mg Q4H PRN ORAL temp>100.2 or headache 11/02/19 14:00 12/02/19 13:59 Acetaminophen/ Hydrocodone Bitart ([place] 5/325) 2 tab Q4H PRN ORAL pain scores 4-10 11/02/19 14:00 11/09/19 13:59 11/03/19 07:53 Acetaminophen/ Hydrocodone Bitart ([place] 7.5/325) 1 tab Q4H PRN ORAL Mild Pain (Pain Scale 1-3) 11/02/19 14:00 11/09/19 13:59 Aspirin (ASA) 325 mg BID ORAL 11/02/19 18:00 12/02/19 17:59 11/03/19 08:46 Dextrose/ Electrolytes 1,000 ml @ 75 mls/hr [id number] IV 11/02/19 18:00 12/02/19 17:59 11/03/19 06:49 Diphenhydramine HCl (Benadryl) 25 mg Q6H PRN ORAL Itching 10/31/19 21:30 11/30/19 21:29 Docusate Sodium (Colace) 100 mg THREE TIMES A DAY ORAL 11/02/19 18:00 12/02/19 17:59 11/03/19 08:46 Ferrous Sulfate (Feosol) 325 mg THREE TIMES A DAY ORAL 11/02/19 18:00 12/02/19 17:59 11/03/19 08:46 Heparin Sodium (Porcine) (Heparin 5000 units/ml) 5,000 units EVERY 12 HOURS SUBQ 11/03/19 21:00 12/02/19 08:59 11/03/19 09:47 Hydromorphone HCl (Dilaudid) 1 mg Q4H PRN SUBQ Mild Pain (Pain Scale 1-3) 11/02/19 14:00 11/09/19 13:59 Hydromorphone HCl (Dilaudid) 2 mg Q3H PRN SUBQ Severe Pain (Pain Scale 7-10) 11/02/19 14:00 11/09/19 13:59 11/03/19 09:39 Hydromorphone HCl (Dilaudid) 2 mg Q4H PRN SUBQ Moderate Pain (Pain Scale 4-6) 11/02/19 14:00 11/09/19 13:59 Levothyroxine Sodium (Synthroid) 25 mcg DAILY@0630 ORAL 11/01/19 06:30 12/01/19 06:29 11/03/19 05:39 Magnesium Hydroxide (Mom) 30 ml DAILYPRN PRN ORAL Constipation 11/02/19 14:00 12/02/19 13:59 Metoprolol Succinate (Toprol XL) 25 mg DAILY ORAL 11/02/19 02:00 12/02/19 01:59 11/03/19 08:47 Mirtazapine (Remeron) 15 mg BEDTIME ORAL 11/01/19 21:00 12/01/19 20:59 11/02/19 21:36 Ondansetron HCl (Zofran) 4 mg Q6H PRN IVP Nausea & Vomiting 10/31/19 21:30 11/30/19 21:29 Pantoprazole (Protonix) 40 mg DAILY ORAL 11/03/19 09:00 12/03/19 08:59 11/03/19 08:46 Patient Own Medication (Patient's Own Med) 1 ea BID ORAL 11/03/19 09:00 12/03/19 08:59 11/03/19 08:47 Zolpidem Tartrate (Ambien) 5 mg HSPRN PRN ORAL Insomnia 10/31/19 21:30 11/07/19 21:29 Mariano Taylor MD Nov 03, 2019 12:30
--- NOTE | 2019-11-03 12:56 | Diagnostic Imaging Report ---
Indication: Pain, femur fracture Technique: Intraoperative imaging from orthopedic surgery Operating surgeon: Letitia Fluoroscopy time: 92.2 seconds Total fluoroscopy dose: 5.58 mGy Total number of fluoroscopic images obtained:12 Radiologist was not present during image acquisition Comparison: Femur radiographs from earlier the same day Findings: Submitted for archival the PACS. Images demonstrate open reduction and internal fixation of previously demonstrated femoral fracture. Please see operative report. Impression: Fluoroscopic imaging from orthopedic surgery. Please see operative report.
--- NOTE | 2019-11-03 12:56 | Diagnostic Imaging Report ---
Indications: Leg pain status post injury with fracture Technique: 5 views of the left femur Comparison: 10/31/2019 Findings: The patient is status post interval open reduction and internal fixation of the previously seen severely comminuted fracture of the distal femur with a intramedullary nail affixed proximally with one screw and affixed distally with 3 screws. Alignment is improved however there is little combination of the fracture and not all pieces are fixed. There is chronic appearing fragmentation of portions of the greater trochanter which may represent sequela of remote injury or enthesopathic changes. There are extensive atherosclerotic vascular calcifications. Garces catheter noted. Air in the soft tissues consistent with postoperative acquisition of the radiograph. Impression: Status post open reduction and surgical fixation of the previously described comminuted fracture of the distal femur.
--- NOTE | 2019-11-03 13:00 | NUR ---
NURSE NOTES: [employer] DRESSING TO RT HEEL,RT HIP AND SACRAL AREA DRY AND INTACT.
--- NOTE | 2019-11-03 13:28 | CDS Physician Query ---
Clarification is required for compliance, coding accuracy, and to reflect severity of illness for this patient Dear Dr. Mariano Taylor Date: 11/03/2019 Procedures Rn/ CDS Name: Gail Napier Clinical Documentation states: 11/03 note: [69 yo female] Fracture, femur POD#1 Post operative anemia s/p Fall Labs: 10/31 Hb 9.4, 11/01 Hb 8.3 Treatment: Transfusion 1 unit RBC on 11/02 Please clarify the specific type of anemia below: Acuity []Acute []Acute on Chronic []Chronic Etiology [] Blood loss [] ESRD [] Neoplastic disease [] Iron deficiency [] GI Bleeding [] Anemia of chronic disease [] Dilutional [] Unable to determine [] Other: Present on Admission: [] Yes [] No [] Clinically Undetermined Physician signature Date Please also document in your Progress Notes and/or Discharge Summary and indicate if the condition was present on admission. DARRON
--- NOTE | 2019-11-03 13:46 | NUR ---
CASE MANAGEMENT: INITIAL REVIEW 69YR OLD FEMALE BIBA FROM HOME CC: MULTIPLE TRAMA/ FALL SI: LEFT FEMUR FRACTURE . FALL 97.8 63 18 95 146/65 95% ON RA WBC 11.1 H/H 9.4/30.4 IS:IV MORPHIN X1 IV DILAUDID X3 IV ZOFRAN X1 IV TORADOL X1 \: 3E MED SURG UNIT DCP: HOME WHEN STABLE CASE MANAGEMENT: REVIEW 11/03/2019 SI: POD#1 ORIF LEFT FEMUR FRACTURE . FALL 98.4 82 18 131/68 97% ON RA H/H 8.2/25.5 PLT 129 IS:IV CEFAZOLIN X2 BEGS IVF D5 1/2 NS W/KCL @75ML/HR FEOSOL PO TID HEPARIN SQ BID TOPROL PO QD PROTONIX PO QD \: 3E MED SURG UNIT DCP: HOME WHEN STABLE
--- NOTE | 2019-11-03 14:05 | NUR ---
NURSE NOTES: V/S TAKEN. 1 UNIT RPBC STARTED AND INFUSING. WILL MONITOR PT.
--- NOTE | 2019-11-03 14:50 | NUR ---
P.T Note: late entry 1005 P.T evaluation completed and tx initiated. Please refer to P.T evaluation for current functional status. Pt is alert, O x 4, pleasant and cooperative. Pt presented generalized weakness and increased pain on the R thigh and knee aggravated movement initiation. Pt. currently require MOD A X 1 to roll/turn on both sides of bed using the bed rail , MAX A X 1 to complete supine to/from sitting and MAX A x 2P on sit to/from stand and bed to/from chair using the FWW. Pt was able to stand however unable to advance BLE to ambulate. Pt demonstrated poor activity tolerance as evidenced by intermittent rest breaks needed in between activity tasks. Pt is highly motivated and should benefit from skilled P.T services to increase strength, balance and endurance to increase mobility independence and safety. Recommend SNF for further rehab intervention VS home with P.T at [place]. Thank you for this referral.
--- NOTE | 2019-11-03 15:04 | 48 Hour Post Anesthesia Eval ---
Post Anesthesia Evaluation Procedure: ORIF of L distal femoral Fx Date of Evaluation: Nov 03, 2019 Time of Evaluation: 15:03 Blood Pressure Systolic: 135 0: 60 Pulse Rate: 83 Respiratory Rate: 20 Temperature (Fahrenheit): 96.8 O2 Sat by Pulse Oximetry: 99 Airway: patent Nausea: No Vomiting: No Pain Intensity: 2 Hydration Status: adequate Cardiopulmonary Status: Stable Follow-up Care/Observations: 0 Post-Anesthesia Complications: 0 Follow-up care needed: N/A Edenilson Hinkle MD Nov 03, 2019 15:04
--- NOTE | 2019-11-03 15:29 | Surgery Progress Note ---
Surgery Progress Note Subjective Additional Comments doing great states surgery went well and feels well no pain non/v/f/c Objective Last 24 Hour Vital Signs Date Time Temp Pulse Resp B/P (MAP) Pulse Ox O2 Delivery O2 Flow Rate FiO2 11/03/19 15:04 83 20 99 11/03/19 14:20 96.8 83 20 135/60 (85) 99 11/03/19 14:05 96.4 83 20 127/58 (81) 99 11/03/19 12:00 98.4 82 18 131/68 (89) 97 11/03/19 10:00 98.5 11/03/19 09:00 Room Air 11/03/19 08:47 83 153/82 11/03/19 08:23 98.5 11/03/19 08:00 98.6 83 18 183/82 (115) 98 11/03/19 04:00 98.7 84 19 126/78 (94) 97 11/03/19 00:00 98.5 79 19 112/52 (72) 98 11/02/19 21:00 Room Air 11/02/19 20:00 98.4 79 20 127/56 (79) 98 11/02/19 18:00 98.3 87 20 151/90 (110) 97 11/02/19 17:30 97.1 93 20 142/105 (117) 97 11/02/19 17:15 98.2 87 20 135/61 100 Nasal Cannula 3 11/02/19 17:05 84 19 121/57 100 Nasal Cannula 3 11/02/19 16:50 89 15 137/62 100 Nasal Cannula 3 11/02/19 16:40 85 18 131/56 100 Nasal Cannula 3 11/02/19 16:30 81 15 142/60 100 Simple Mask 3 11/02/19 16:26 86 20 99 11/02/19 16:25 88 14 146/53 100 Simple Mask 3 11/02/19 16:19 97.6 84 13 146/60 100 Simple Mask 3 I&O Intake and Output 11/02/19 11/03/19 19:00 07:00 Intake Total 1625 ml 1185 ml Output Total 1050 ml 600 ml Balance 575 ml 585 ml Intake Oral 150 ml 360 ml IV Total 1475 ml 825 ml Output Urine Total 900 ml 600 ml Estimated Blood Loss 150 ml # Voids 1 Dressing: dry Wound: clean Respiratory: clear Abdomen: soft, non-tender, present bowel sounds Extremities: no tenderness, no cyanosis Laboratory Tests Test 11/03/19 08:30 White Blood Count 8.0 K/UL (4.8-10.8) Red Blood Count 2.96 M/UL (4.20-5.40) L Hemoglobin 8.2 G/DL (12.0-16.0) L Hematocrit 25.5 % (37.0-47.0) L Mean Corpuscular Volume 86 FL (80-99) Mean Corpuscular Hemoglobin 27.9 PG (27.0-31.0) Mean Corpuscular Hemoglobin Concent 32.4 G/DL (32.0-36.0) Red Cell Distribution Width 15.3 % (11.6-14.8) H Platelet Count 129 K/UL (150-450) L Mean Platelet Volume 8.4 FL (6.5-10.1) Neutrophils (%) (Auto) 76.8 % (45.0-75.0) H Lymphocytes (%) (Auto) 10.1 % (20.0-45.0) L Monocytes (%) (Auto) 11.2 % (1.0-10.0) H Eosinophils (%) (Auto) 1.3 % (0.0-3.0) Basophils (%) (Auto) 0.6 % (0.0-2.0) Plan Problems: (1) Fracture, femur Assessment & Plan: Findings: Only limited AP images obtained, due to patient inability to tolerate positioning. There is a comminuted fracture of the distal femur. This is slightly angulated and slightly impacted. Impression: Positive for comminuted distal femoral fracture Ortho OR 11/02 (2) Fall Assessment & Plan: anticoagulate okay for diet OR ortho successful iv fluids abx pre op pt/ot will follow with recs thank you FINDINGS: Bones/joints: Mild osseous hypertrophy and/or enthesophytes along the left femoral greater trochanter, likely chronic. Partial visualization of a comminuted distal femoral diaphyseal fracture. No visible fracture or dislocation in the left hip. Soft tissues: Unremarkable. IMPRESSION: 1. No acute findings in the left hip. 2. Partial visualization of a comminuted distal femoral diaphyseal fracture. FINDINGS: Bones/joints: Comminuted mildly impacted distal femoral metaphyseal fracture. Moderate tricompartmental degenerative osteoarthrosis. Small knee joint effusion. Soft tissues: Soft tissue swelling overlying the knee. Vasculature: Vascular calcifications seen posteriorly. IMPRESSION: 1. Comminuted mildly impacted distal femoral metaphyseal fracture. 2. Moderate tricompartmental degenerative osteoarthrosis. 3. Soft tissue swelling overlying the knee. 4. Small knee joint effusion. Feliciano Mcleod Nov 03, 2019 15:29
--- NOTE | 2019-11-03 17:00 | NUR ---
NURSE NOTES: blood transfusion completed. v/s taken. no reaction note. in no distress.
--- NOTE | 2019-11-03 19:00 | NUR ---
NURSE NOTES: PLACED ON THE BEDPAN BUT UNABLE TO URINATE. ASSISTED OUT OF BED TO THE BEDSIDE COMMODE.WILL TRY TO URINATE. JUICE GIVEN PO. WILL MONITOR PT.
--- NOTE | 2019-11-03 19:15 | NUR ---
NURSE NOTES: Received report from GUICHO Clancy. Pt is awake, sitting in the bedside commode, trying to urinate. No signs of acute distress noted. Pt denies any pain at this time. AOx4; able to make needs known. Checked IV site, line, and rate; patent and running. No erythema, bleeding, or infiltration noted. Call light within reach. Bed at lowest position. Will continue to monitor.
--- NOTE | 2019-11-03 19:16 | NUR ---
HAND-OFF: Report given to VICKY LINDO.
--- NOTE | 2019-11-03 21:42 | NUR ---
NURSE NOTES: GUICHO Clancy, endorsed to contact Dr. Givens if pt is still unable to urinate. Bladder scan was done and it showed 449 mL. made aware. Awaiting callback/orders.
--- NOTE | 2019-11-03 22:41 | NUR ---
NURSE NOTES: Received order from Dr. Givens to place a Garces. Noted and will carry out.
--- NOTE | 2019-11-03 23:30 | NUR ---
NURSE NOTES: Inserted 16FR Garces. Urine output is yellow. Pt tolerated procedure well.
[2019-11-04] VITALS: BP 125/54
--- NOTE | 2019-11-04 00:01 | Progress Note ---
DATE: 11/03/2019 CARDIOLOGY PROGRESS NOTE SUBJECTIVE: The patient has slight shortness of breath and pain is controlled. Hemoglobin level has dropped to 8.2. OBJECTIVE: VITAL SIGNS: Blood pressure 83/48 earlier with heart rate 69, respiratory rate 18, and temperature 99.7. Now blood pressure 120/53. NECK: Supple. LUNGS: With few rales. CARDIAC: Regular, normal S1 and S2 with a fourth heart sound. ABDOMEN: Soft. EXTREMITIES: No edema. IMPRESSION: 1. Status post open reduction and internal fixation of left hip. 2. Postop anemia. 3. Episode of hypotension. 4. Ischemic cardiomyopathy with stable angina and history of prior myocardial infarction. PLAN: 1. Low-dose aspirin with caution. 2. No resumption of Brilinta for now. 3. Packed red blood cell transfusion. 4. Concomitant diuresis. 5. Titrate anti-failure and antianginal regimen. 6. Mobilize. 7. DVT prophylaxis. Mariano Snyder M.D. DR: BLAYNE JOB#: [id number] CC:
[2019-11-04 04:00] VITALS: BP 153/68
[2019-11-04] MEDS: Levothyroxine 25mcg tab ORAL SCH (05:55)
[2019-11-04 06:37] LABS: BASOPHILS % (AUTO) 0.7 % (0.0-2.0); HEMATOCRIT 26.4 % (37.0-47.0); HEMOGLOBIN 8.7 G/DL (12.0-16.0); LYMPHOCYTES % (AUTO) 9.7 % (20.0-45.0); MEAN CORPUSCULAR VOLUME 87 FL (80-99); MONOCYTES % (AUTO) 9.3 % (1.0-10.0); NEUTROPHILS % (AUTO) 78.4 % (45.0-75.0); PLATELET COUNT 129 K/UL (150-450); RED BLOOD COUNT 3.04 M/UL (4.20-5.40); RED CELL DISTRIBUTION WIDTH 15.1 % (11.6-14.8); WHITE BLOOD COUNT 7.5 K/UL (4.8-10.8)
--- NOTE | 2019-11-04 07:20 | NUR ---
HAND-OFF: Report given to GUICHO Frost. Pt is awake and in stable condition. Plan of care endorsed.
[2019-11-04 08:00] VITALS: BP 128/59
--- NOTE | 2019-11-04 08:00 | NUR ---
NURSE NOTES: Received report from [place] LINDO, pt a/a/o x4 laying in bed with no signs of distress or other issues at this time. surgical dressing dry and intact, per report dressing was changed this morning. As well as the sacral wound, right heel and right hip. per protocol to be change every 3 days. IV on the right wrist gauge#20 running@75ml/hr. patient also has a francisco cath to be use for chemo. knee immobilizer in place. pt is partial weight bearing on the left knee. call light within reach, bed in lowest position, side rales u x2. I will f/u as needed.
--- NOTE | 2019-11-04 08:18 | General Progress Note ---
Assessment/Plan Assessment/Plan: Impression: Fracture, femur Fall Coronary Artery Disease, s/p Stent May 2019 Renal Cell Carcinoma s/p Chemotherapy Left femur supracondylar fracture with severe comminution, extra-articular. s/p Left distal femur open reduction and internal fixation with a retrograde intramedullary nail, Plan: Orthopedic intervention noted Cardiology follow up; to resume Brillanta Monitor labs and transfuse as needed Pain medications DVT prophylaxis post op care and rehab likely needed; will discuss impression, plan, and exam edited and reviewed in detail care discussed with RN Subjective Allergies: Coded Allergies: No Known Allergies (Unverified , 10/31/19) Subjective care reviewed has pain surgery completed Objective Last 24 Hour Vital Signs Date Time Temp Pulse Resp B/P (MAP) Pulse Ox O2 Delivery O2 Flow Rate FiO2 11/04/19 04:00 98.5 80 17 153/68 (96) 95 11/04/19 00:00 98.1 69 18 125/54 (77) 94 11/03/19 21:00 Room Air 11/03/19 20:00 98.2 75 17 127/47 (73) 94 11/03/19 18:55 96.8 11/03/19 17:00 96.8 82 20 120/53 (75) 97 11/03/19 16:00 82 120/53 (75) 11/03/19 15:30 99.7 69 18 83/48 (60) 97 11/03/19 15:04 83 20 99 11/03/19 14:50 96.8 11/03/19 14:20 96.8 83 20 135/60 (85) 99 11/03/19 14:05 96.4 83 20 127/58 (81) 99 11/03/19 12:00 98.4 82 18 131/68 (89) 97 11/03/19 09:00 Room Air 11/03/19 08:47 83 153/82 Intake and Output 11/03/19 11/04/19 19:00 07:00 Intake Total 825 ml 990 ml Output Total 150 ml 2100 ml Balance 675 ml -1110 ml Intake Oral 300 ml 240 ml IV Total 525 ml 750 ml Output Urine Total 150 ml 2100 ml # Voids 2 # Bowel Movements 1 Laboratory Tests 11/03/19 08:30: White Blood Count 8.0, Red Blood Count 2.96L, Hemoglobin 8.2L, Hematocrit 25.5L , Mean Corpuscular Volume 86, Mean Corpuscular Hemoglobin 27.9, Mean Corpuscular Hemoglobin Concent 32.4, Red Cell Distribution Width 15.3H, Platelet Count 129L, Mean Platelet Volume 8.4, Neutrophils (%) (Auto) 76.8H, Lymphocytes (%) (Auto) 10.1L, Monocytes (%) (Auto) 11.2H, Eosinophils (%) (Auto ) 1.3, Basophils (%) (Auto) 0.6 11/04/19 05:30: White Blood Count 7.5, Red Blood Count 3.04L, Hemoglobin 8.7L, Hematocrit 26.4L , Mean Corpuscular Volume 87, Mean Corpuscular Hemoglobin 28.6, Mean Corpuscular Hemoglobin Concent 33.0, Red Cell Distribution Width 15.1H, Platelet Count 129L, Mean Platelet Volume 9.5, Neutrophils (%) (Auto) 78.4H, Lymphocytes (%) (Auto) 9.7L, Monocytes (%) (Auto) 9.3, Eosinophils (%) (Auto) 2.0, Basophils (%) (Auto) 0.7 Height (Feet): 5 Height (Inches): 3.00 Weight (Pounds): 165 Objective WDWN NAD clear breath sounds bilaterally without rhonchi or wheeze [id number] without MRG NABS nontender no HSM no CCE nonfocal Mingo Givens MD Nov 04, 2019 08:18
[2019-11-04] MEDS: Docusate 100mg cap ORAL SCH ×3 (08:23→16:54)
[2019-11-04] MEDS: BRILINTA 90 MG ORAL SCH ×2 (08:26→16:54)
[2019-11-04] MEDS: Metoprolol Succinate XL 25mg tab ORAL SCH (08:26)
[2019-11-04] MEDS: Heparin 5000 units/ml inj SUBQ SCH (08:28)
--- NOTE | 2019-11-04 10:28 | NUR ---
DISCHARGE PLANNING: CLINICALS HAVE BEEN FAXED TO [facility] T: [phone] F: [phone] WAITING FOR DISCHARGE ORDER AND RESPONSE
[2019-11-04 12:00] VITALS: BP 127/52
[2019-11-04] MEDS: HYDROcodone/Acetamin 5/325 tab ORAL PRN ×2 (12:34→16:55)
[2019-11-04] MEDS ORDERED: NS 275ml ONE (15:23)
--- NOTE | 2019-11-04 15:59 | Surgery Progress Note ---
Surgery Progress Note Subjective Symptoms: improved, tolerating diet, voiding well, passing flatus Objective Last 24 Hour Vital Signs Date Time Temp Pulse Resp B/P (MAP) Pulse Ox O2 Delivery O2 Flow Rate FiO2 11/04/19 13:04 98.5 11/04/19 08:57 98.5 11/04/19 08:26 86 117/59 11/04/19 04:00 98.5 80 17 153/68 (96) 95 11/04/19 00:00 98.1 69 18 125/54 (77) 94 11/03/19 21:00 Room Air 11/03/19 20:00 98.2 75 17 127/47 (73) 94 11/03/19 17:00 96.8 82 20 120/53 (75) 97 11/03/19 16:00 82 120/53 (75) I&O Intake and Output 11/03/19 11/04/19 19:00 07:00 Intake Total 825 ml 990 ml Output Total 150 ml 2100 ml Balance 675 ml -1110 ml Intake Oral 300 ml 240 ml IV Total 525 ml 750 ml Output Urine Total 150 ml 2100 ml # Voids 2 # Bowel Movements 1 Dressing: dry Wound: clean Cardiovascular: RSR Respiratory: clear Abdomen: soft, flat, non-tender, present bowel sounds Extremities: no cyanosis, other Laboratory Tests Test 11/04/19 05:30 White Blood Count 7.5 K/UL (4.8-10.8) Red Blood Count 3.04 M/UL (4.20-5.40) L Hemoglobin 8.7 G/DL (12.0-16.0) L Hematocrit 26.4 % (37.0-47.0) L Mean Corpuscular Volume 87 FL (80-99) Mean Corpuscular Hemoglobin 28.6 PG (27.0-31.0) Mean Corpuscular Hemoglobin Concent 33.0 G/DL (32.0-36.0) Red Cell Distribution Width 15.1 % (11.6-14.8) H Platelet Count 129 K/UL (150-450) L Mean Platelet Volume 9.5 FL (6.5-10.1) Neutrophils (%) (Auto) 78.4 % (45.0-75.0) H Lymphocytes (%) (Auto) 9.7 % (20.0-45.0) L Monocytes (%) (Auto) 9.3 % (1.0-10.0) Eosinophils (%) (Auto) 2.0 % (0.0-3.0) Basophils (%) (Auto) 0.7 % (0.0-2.0) Plan Problems: (1) Fracture, femur Assessment & Plan: Findings: Only limited AP images obtained, due to patient inability to tolerate positioning. There is a comminuted fracture of the distal femur. This is slightly angulated and slightly impacted. Impression: Positive for comminuted distal femoral fracture Ortho OR 11/02 (2) Fall Assessment & Plan: anticoagulate okay for diet OR ortho successful iv fluids abx pre op pt/ot will follow with recs thank you FINDINGS: Bones/joints: Mild osseous hypertrophy and/or enthesophytes along the left femoral greater trochanter, likely chronic. Partial visualization of a comminuted distal femoral diaphyseal fracture. No visible fracture or dislocation in the left hip. Soft tissues: Unremarkable. IMPRESSION: 1. No acute findings in the left hip. 2. Partial visualization of a comminuted distal femoral diaphyseal fracture. FINDINGS: Bones/joints: Comminuted mildly impacted distal femoral metaphyseal fracture. Moderate tricompartmental degenerative osteoarthrosis. Small knee joint effusion. Soft tissues: Soft tissue swelling overlying the knee. Vasculature: Vascular calcifications seen posteriorly. IMPRESSION: 1. Comminuted mildly impacted distal femoral metaphyseal fracture. 2. Moderate tricompartmental degenerative osteoarthrosis. 3. Soft tissue swelling overlying the knee. 4. Small knee joint effusion. Feliciano Mcleod Nov 04, 2019 15:59
[2019-11-04 16:00] VITALS: BP 128/59
--- NOTE | 2019-11-04 17:30 | NUR ---
NURSE NOTES: call [place] at [phone]) to give report. s/w Fatoumata LÓPEZ. she stated that she will reassign room number once patient arrive to the facility. RN also given PCP info to be aware that pt is there: Dr. Barnes [phone]. Fatoumata LÓPEZ is also aware that pt needs to f/u with Dr. Anna in two weeks. I will f/u as needed.
--- NOTE | 2019-11-04 19:20 | NUR ---
NURSE NOTES: Received report from GUICHO Frost. Discharge was endorsed. However, discharge paperwork was not completed.
--- NOTE | 2019-11-04 19:30 | NUR ---
NURSE NOTES: Received a call from GUICHO Littlejohn from [facility] asking for discharge medication list. However, off going RN did not endorse medication list and Annetta states "there's no medication list in the envelope" that came along with the patient. Completed discharge process form and faxed to the facility. Fax #: [phone].
--- NOTE | 2019-11-04 19:30 | NUR ---
HAND-OFF: Report given to Sherie RN, pt in stable condition. incoming nurse is aware that pt will be transfer to [facility].
--- NOTE | 2019-11-04 19:30 | NUR ---
NURSE NOTES: Received report from GUICHO Frost. Pt is in stable condition. Pt is ready for discharge to [facility] unit. Awaiting for transportation.
--- NOTE | 2019-11-04 19:30 | NUR ---
HAND-OFF: Report given to Gemini Dunaway, EMS transport. Pt is in stable condition. Belongings are with the pt. Pt will be going to [facility].
--- NOTE | 2019-11-04 23:24 | NUR ---
NURSE NOTES: Called Annetta from [facility] to confirm faxed document was received. Documents received and noted. Phone #: [phone].
--- NOTE | 2019-11-05 04:15 | Progress Note ---
DATE: 11/04/2019 CARDIOLOGY PROGRESS NOTE SUBJECTIVE: The patient is status post packed red blood cell transfusion. Postop anemia. Oxygen saturations on room air is 94 to 97 percent. Blood pressure is stable. OBJECTIVE: LUNGS: Good breath sounds. HEART: Regular rhythm and rate. Normal S1, S2. ABDOMEN: Soft. EXTREMITIES: No edema. IMPRESSION: 1. Stable angina. 2. Postop anemia. 3. Status post open reduction and internal fixation of the left hip. 4. Hypertensive heart disease. PLAN: 1. Monitor blood counts. 2. Respiratory hygiene. 3. DVT prophylaxis. 4. Continue current antianginal therapy including low-dose aspirin. 5. Hold Brilinta as she continues to have high bleeding risk in the postoperative setting. 6. Mobilize. Mariano Snyder M.D. DR: FERNANDO JOB#: [id number] CC:
[2019-11-05] MEDS ORDERED: Epoetin Alfa-EPBX (NON ESRD)10,000 unit/ml vial SUBQ SCH (21:00)
--- NOTE | 2019-11-08 10:13 | Discharge Summary ---
Discharge Summary Discharge Summary _ DATE OF ADMISSION: 10/31/2019 DATE OF DISCHARGE: 11/04/2019 DISCHARGED BY: Dr. Givens REASON FOR ADMISSION: 69 years old female with past medical history of renal cancer, last chemotherapy in May 2019, CAD with stent placement in May 2019, presented for mechanical fall earlier that day. Patient reported severe pain with left knee movement. She denied any head injury. No headache, no nausea, vomiting or dizziness. Patient was not on any anticoagulation. On evaluation vital signs were stable . x-ray of the left knee revealed comminuted mildly impacted distal femoral metaphyseal fracture. Moderate tricompartmental degenerative osteoarthrosis. X-ray of the left femur was positive for comminuted distal femoral fracture. Patient subsequently was admitted for surgical evaluation CONSULTANTS: shutdown planner Dr. Snyder orthopedic surgeon Dr. Dong general surgeon Dr. Mcleod HOSPITAL COURSE: Patient admitted to medical surgical floor. Cardiology clearance was obtained due to history of coronary artery disease . Per shutdown planner , patient had stable class I angina along with the coronary artery disease and history of coronary stent. Aspirin was hold . Beta-lyle prophylaxis continued. Echocardiogram revealed preserved ejection fraction of 55 to 60% with no evidence of left ventricular hypertrophy. Mild pulmonary hypertension. Retort Condenser Attendant cleared patient to proceed with the surgery. Patient subsequently undergone 11/02 left distal femur open reduction internal fixation. Postoperatively pain management was addressed. Patient was mobilized with physical therapist. Fall precautions maintained. Surgical hip precaution maintained. DVT prophylaxis provided. Bowel regimen instituted. Beta-lyle prophylaxis along with antiplatelet therapy/aspirin continued. Brilinta was on hold at this time. Antihypertensive titrated to keep blood pressure under control . Patient noted to have postoperative anemia. Hemoglobin and hematocrit were closely monitored. Patient undergone transfusion of 2 units of packed red blood cells . Prior to transfer hemoglobin 8.7 , hematocrit 26.4. No resumption of Brilinta at this time. Supportive care provided. Patient clinically stabilized and was ready for transfer to acute rehabilitation unit for further rehabilitation. FINAL DIAGNOSES: Left femur supracondylar fracture with severe comminution, extra-articular , secondary to mechanical fall Status post open reduction internal fixation of left distal femur fracture Ischemic heart disease with stable angina class I Coronary artery disease with history of stent placement and history of AL Mild pulmonary hypertension Postoperative anemia Renal cell carcinoma, status post chemotherapy DISCHARGE MEDICATIONS: See Medication Reconciliation list. DISCHARGE INSTRUCTIONS: Patient was transferred to [facility] to acute rehabilitation unit for further management. I have been assigned to dictate discharge summary for this account. I was not involved in the patient's management. Celia Roman NP Nov 08, 2019 10:13
== END 2019-11-04 19:25 | disposition short-term general hospital (02) | DRG 481 ==
LOC: EDUNIT# 10:43 → EDBD 10:43 → EMR 11:10 → EDBEDREQ 17:06 → 3E 19:59
PROC: 0QSC06Z Reposition Left Lower Femur with Intramedullary Internal Fixation Device, Open Approach (ICD-10-PCS; principal; 2019-11-02 13:30)
PROC: 30233N1 Transfusion of Nonautologous Red Blood Cells into Peripheral Vein, Percutaneous Approach (ICD-10-PCS; principal; 2019-11-02 13:30)
DX: S72.452A Displaced supracondylar fracture without intracondylar extension of lower end of left femur, initial encounter for closed fracture (principal); D62 Acute posthemorrhagic anemia; W06.XXXA Fall from bed, initial encounter; Y92.003 Bedroom of unspecified non-institutional (private) residence as the place of occurrence of the external cause; I25.118 Atherosclerotic heart disease of native coronary artery with other forms of angina pectoris; Z95.5 Presence of coronary angioplasty implant and graft; Z85.528 Personal history of other malignant neoplasm of kidney; I25.9 Chronic ischemic heart disease, unspecified; I27.20 Pulmonary hypertension, unspecified; M17.12 Unilateral primary osteoarthritis, left knee; E03.9 Hypothyroidism, unspecified
CPT/HCPCS: 36415; 73502; 76000; 80048; 80053; 83880; 84443; 85007; 85025; 85610; 85730; 86850; 86900; 86901; 86920; 93005; 93306; 94003; 94150; 96372; 96374; 96375; 96376; 99285; J2405; J7030